=== PATIENT | male | born 1965 | race Caucasian/White ===

== ENCOUNTER 2020-03-01 23:47 | Emergency (ER) | payer OTHER, SELFPAY ==
[2020-03-01 23:48] VITALS: PULSE 84; RESP 18; TEMP 36.6; O2SAT 99; BMI 36.2
[2020-03-01 23:58] VITALS: BP 190/108
[2020-03-02 00:14] VITALS: BP 148/95
--- NOTE | 2020-03-02 00:41 | RAD_ITS ---
STUDY: X-RAY CHEST REASON FOR EXAM: Male, 54 years old. Pain between shoulder blades upon inspiration. TECHNIQUE: Single AP portable view of the chest. COMPARISON: None. FINDINGS: The lungs are clear and expanded. There is no demonstrated pleural abnormality. Normal size heart. Normal mediastinum and huseyin. Normal visualized pulmonary arteries. Normal visualized aortic arch and descending thoracic aorta. Normal visualized thoracic spine. Normal visualized ribs, clavicles, and shoulders. There is no demonstrated abnormality of the visualized soft tissue structures of the upper abdomen. RAD/Chest 1 View (Portable) IMPRESSION: Normal x-ray examination of the chest. Electronically Signed: Mele Souza, at 1:44 EST Tel , Service support ,
[2020-03-02] MEDS: Naproxen 250 MG Tablet 500 MG PO (00:51)
--- NOTE | 2020-03-02 02:05 | ED.DCSUM_ITS ---
- ER Visit Summary Date of Service: 03/02/20 Chief Complaint: Thoracic back pain History of Present Illness: The patient is a 54 M resents with thoracic back pain that began yesterday. Patient states the pain is over the right lower thoracic area under his right scapula. Patient states the pain waxes and wanes. Patient describes the pain is sharp and burning. Patient states it is worse with breathing. Patient states nothing seems to help with it. Patient states it is causing him to be somewhat short of breath. Patient denies any cough. Patient denies any fevers or chills. Patient denies any chest pain. Physical Examination: Vital signs are stable. Patient is afebrile. Patient is in no acute distress. Oral mucosa is pink and moist. Neck is supple. Trachea is midline. There is no JVD. Heart was regular rate and rhythm. Lungs are clear and equal bilateral. Abdomen is soft. Bowel sounds are normal. There is no tenderness. Musculoskeletal exam reveals minimal tenderness over the right lower thoracic paraspinal area. There is no bony crepitance or step-off. Cranial nerves II through XII are intact. Strength is 5/5 bilateral in the upper and lower extremities. There are no sensory deficits. Test Results: Portable chest x-ray is obtained. There is no acute cardiopulmonary process noted. This was interpreted by the radiologist and reviewed by myself. Emergency Department Course and Treatment: Patient was given a dose of Naprosyn here. Patient was given a prescription for Naprosyn. Patient was advised that this could be musculoskeletal or pleurisy. Patient was instructed to follow-up with his primary care physician in 5 to 7 days. Patient understood and was agreeable with the plan. All questions were answered. Disposition: Discharge home Impression: Thoracic back pain This note was generated with [employer] dictation software. It may contain incorrect words, spelling, and punctuation that were not noted in review of the chart prior to signing ED Disposition - Plan for ED Patient: Disposition: Home or Assisted Living Diagnosis: Acute thoracic back pain Instructions: ED Back Pain Acute or Chronic, ED Chest Pain Pleurisy Prescriptions: Naproxen [Naprosyn] 500 mg PO BID PRN #20 tab Prescription Printed Referrals: Eligio Lyman MD [Primary Care Provider] - 5-7 Days
[2020-03-02 02:18] VITALS: BP 140/78; PULSE 88; RESP 18; O2SAT 100
== END 2020-03-02 02:18 | disposition home or self-care (01) ==
PROVIDERS: Emergency Provider Emergency Medicine; PCP Family Medicine
DX: M54.6 Pain in thoracic spine (principal); I10 Essential (primary) hypertension; Z79.899 Other long term (current) drug therapy; Z72.0 Tobacco use
CPT/HCPCS: 71045; 99283

== ENCOUNTER 2020-08-07 19:59 | Emergency (ER) | payer OTHER, SELFPAY ==
[2020-08-07] VITALS (7 sets, daily range): BP systolic 130–176; BP diastolic 74–106; PULSE 78–89; RESP 13–19; TEMP 36.4–37.1; O2SAT 93–97; BMI 36.1
--- NOTE | 2020-08-07 20:15 | CT_ITS ---
STUDY: CT SOFT TISSUE NECK WITH CONTRAST REASON FOR EXAM: Male, 54 years old. Left neck fullness RADIATION DOSAGE (If Supplied By Facility): CTDIvol = ( 19.28 ) mGy, DLP = ( 626.15 ) mGycm TECHNIQUE: The patient was scanned in a multi-detector CT scanner. High resolution transaxial imaging was performed following intravenous administration of IV 75mL Isovue-370. Sagittal and coronal images were reconstructed. Individualized dose optimization techniques were used for this CT. COMPARISON: None. FINDINGS: Normal bilateral parotid glands. Normal bilateral inventory control/shipping receiving spaces. Normal bilateral parapharyngeal spaces. Normal bilateral carotid spaces. There is enlargement of the left submandibular gland with ill-defined fat planes. There is some heterogeneity extending into the left digastric and possible geniohyoid muscles requiring further evaluation. Normal visualized nasopharynx. Normal retropharyngeal space. Normal perivertebral space. Normal visualized bilateral faucial tonsils. The visualized tongue, tongue base and oropharynx are normal. Mild left submandibular adenopathy. There is no abnormal contrast enhancement. There is intraluminal thrombus and calcifications at the bilateral carotid bulbs with moderate luminal narrowing. Mild thickening is noted on the left side of the epiglottis. There is mild soft tissue fullness at the left side of the vallecula and the left piriform sinus. The pre-epiglottic and paraglottic adipose spaces are normal. Normal visualized aryepiglottic folds, vocal cords, and arytenoid-cricoid articulations. Normal subglottic trachea. Normal bilateral lobes of the thyroid gland. Normal visualized pulmonary apices. Normal visualized paranasal sinuses. Normal visualized cervical spine. CT/Soft Tissue Neck WITH Contrast IMPRESSION: Enlargement of the left submandibular gland with ill-defined fat planes. There is some heterogeneity extending into the left digastric and possible geniohyoid muscles requiring further evaluation. Mild left submandibular adenopathy. Mild thickening is noted on the left side of the epiglottis. There is mild soft tissue fullness at the left side of the vallecula and the left piriform sinus. Further correlation with MRI may be of value if clinically indicated. There is intraluminal thrombus and calcifications at the bilateral carotid bulbs with moderate luminal narrowing. Electronically Signed: August Quesada DO at 22:02 EDT Tel [phone], Service support ,
[2020-08-07] MEDS: Ondansetron 4 MG/2 ML Vial IV (20:35)
[2020-08-07] MEDS: morphine 8 MG/ML Syringe IV (20:35)
[2020-08-07] MEDS: 0.9% Normal Saline 1,000 ML 1000 ML IV (20:35)
--- NOTE | 2020-08-07 20:44 | RAD_ITS ---
STUDY: X-RAY CHEST REASON FOR EXAM: Male, 54 years old. Chest pain TECHNIQUE: Frontal view COMPARISON: 03/02/2020 FINDINGS: The lungs are clear and expanded. There is no demonstrated pleural abnormality. Normal size heart. Normal mediastinum and huseyin. Normal visualized pulmonary arteries. Normal visualized aortic arch and descending thoracic aorta. Normal visualized thoracic spine. Normal visualized ribs, clavicles, and shoulders. There is no demonstrated abnormality of the visualized soft tissue structures of the upper abdomen. RAD/Chest 1 View (Portable) IMPRESSION: Normal x-ray examination of the chest. Electronically Signed: August Quesada DO at 20:59 EDT Tel [phone], Service support ,
[2020-08-07 20:45] LABS: Absolute Lymphocyte Count 1.38 X10^3/uL (0.83-4.51); Basophil# 0.05 X10^3/uL; Basophil% 0.5 % (0-1); Eosinophil# 0.19 X10^3/uL; Hematocrit 48.9 % (40-54); Lymphocyte # 1.38 X10^3/ul (0.83-4.51); Lymphocyte % 14.7 % (19-41); Mean Corp Hgb Conc 32.7 g/dL (32-36); Mean Corpuscular Hgb 31.9 pg (27.0-32.0); Mean Corpuscular Volume 97.4 fL (80-94); Mean Platelet Vol. 9.3 fl (6.2-12.0); Monocyte# 0.74 X10^3/uL; Monocyte% 7.9 % (0-10); NRBC Flagged by Analyzer 0 % (0-5); Neutrophil # 6.96 X10^3/uL (2.7-7.7); Neutrophil % 74.3 % (47-70); Platelet Count 217 K/mm3 (150-450); RBC Distribution Width CV 12.9 % (11.6-14.6); RBC Distribution Width SD 46.5 fl (35.1-43.9); Red Blood Count 5.02 M/mm3 (4.6-6.2); White Blood Count 9.4 K/mm3 (4.4-11.0)
[2020-08-07 21:03] LABS: Anion Gap 4 (5-15); BUN 15 mg/dL (7-18); Calcium,Total 9.2 mg/dL (8.5-10.1); Chloride 102 mmol/L (98-107); EST Glomerular Filtration Rate 83 mL/min (>60); Est Glom Filt Rate - Afr Amer 101 mL/min (>60); Estimated Creatinine Clearance 93.77 ml/min; Glucose 125 mg/dL (74-106); Potassium 4.3 mmol/L (3.5-5.1); Sodium Level 133 mmol/L (136-145)
--- NOTE | 2020-08-07 21:13 | ED.DCSUM_ITS ---
History of Present Illness Chief Complaint: General Illness Informant: Patient Onset: Days Maximum Severity: Mild Narrative: Patient presents with swelling over the left lower mandible area for the last few days he was seen by urgent care the other day told to follow-up given Naprosyn for the pain the symptoms persist and he came in for evaluation, he has no dental pain he has no fever no cough he smokes but has no history of HEENT abnormalities, he is able to drink water solid foods make a little bit harder, he has no stridor or drooling no fever no cough no coronavirus exposures no other complaints or issues Past Medical History - Allergies and Home Meds Allergies/Adverse Reactions: Allergies tree nut Allergy (Verified 08/07/20 20:03) Anaphylaxis Primary Care Physician: Eligio Lyman MD [Primary Care Provider] - Past Medical History: None Smoking Status: Current every day smoker Review of Systems General: Denies: Chills, Fever, Sweats Eyes: Denies: Visual changes - bilaterally, Diplopia ENT: Reports: - - Swelling under the left mandible. Denies: Rhinorrhea, Sore throat Cardiovascular: Denies: Chest pain, Palpitations Respiratory: Denies: Dyspnea, Cough, Dyspnea on exertion Gastrointestinal: Denies: Abdominal pain, Nausea, Vomiting, Diarrhea, Melena, Hematochezia Genitourinary: Denies: Dysuria, Hematuria, Frequency Musculoskeletal: Denies: Back pain, Extremity Pain Skin: Denies: Rash, Wounds Neurological: Denies: Headache, Weakness, Numbness Physical Exam Vital Signs/Narrative: Vital Signs Temp Pulse Resp BP Pulse Ox 08/07/20 20:25 97.8 F 84 19 H 176/106 H 95 08/07/20 20:14 95 08/07/20 20:00 97.5 F L 89 18 167/105 H 95 General: Well nourished, Well developed, No Acute Distress Head: Normocephalic, Atraumatic Eyes: Perrl, EOMI ENT: Moist mucous membranes, No rhinorrhea, - - He has a fullness under his left mandible the oral cavity is unremarkable his teeth do not show any obvious signs of infection there is no stridor or drooling his phonation is normal Neck: Supple, Nontender Cardiovascular: Regular rate, Regular rhythm, No murmurs Respiratory: No distress, CTA bilaterally, Chest nontender Abdomen: Soft, Nontender, Nondistended, Normal bowel sounds Back: Nontender, Normal Inspection Extremities: Nontender, No edema Skin: Normal color, No rash Neurological: Alert, Oriented x3, Cranial nerves II-XII grossly intact, Normal Strength, Normal Sensation Psychological: Normal affect, Normal Mood Diagnostic/Tx/Re-eval - Medical Decision Making Fullness under his left mandible and all the above the differential screening labs CT soft tissue neck ED evaluation His EKG shows a sinus rhythm rate 75 no acute injury 1 view chest x-ray to my review shows nothing acute radiology concurs with the report, CT of the neck shows an abnormality involving the left submandibular gland there is a fullness here there is some edema the airway is generally intact, there is also findings of thombus and plaques involving the bilateral c arotid bulbs, recommend MRI for further delineation of the abnormalities patient's ED screening labs are generally unremarkable she was reports, Woke with the patient at length about admission for further management of the above he does not wish to be admitted we discussed all of the findings including the concept of airway compromise sudden stroke from the thrombus in the carotids infection possible carcinoma in the broad differential of all the above, he voiced understanding but did not wish to be admitted, I then spoke with his outpatient providers made them aware of the above they would see him in the office MY[facility] to further evaluate him ENT MRI consultation he will return for change in symptoms he will be started on Augmentin he has Naprosyn he will be given [address] 4 tablets as a rescue medicine he will follow-up and return return for change in symptoms he is clearly awake and alert has capacity to make this decision and understands all the risks including the risk of airway compromise and Home stable declined admission Impression final left submandibular mass, 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 ED Disposition - Plan for ED Patient: Diagnosis: Submandibular gland mass Instructions: ED ADENITIS Cervical Abx Tx, ED PAROTID GLAND SWELLING Unk Cause Prescriptions: Amox/Clavulanate Tablet [Augmentin Tablet] 875 mg PO Q12H #20 tab Prescription Printed Hydrocodone Bitart/Apap 5-325 [[address] 5MG-325MG] 1 tablet PO Q6H PRN PRN 7 Days #7 tab PRN Reason: Pain Prescription Printed Referrals: Eligio Lyman MD [Primary Care Provider] - Additional Instructions: You have swelling of the left submandibular gland the cause of this is unclear you have thrombus in your carotid arteries you must see your outpatient providers tomorrow return for change in symptoms
[2020-08-07] MEDS: 0.9% Normal Saline 1,000 ML 999 ML IV (21:47)
[2020-08-07] MEDS: Amox/Clavulanate 875 MG Tablet PO ×2 (22:59)
--- NOTE | 2020-08-07 23:40 | EKG12_ITS ---
Test Reason : JAW PAIN Blood Pressure : / mmHG Vent. Rate : 075 BPM Atrial Rate : 075 BPM P-R Int : 164 ms QRS Dur : 086 ms QT Int : 408 ms P-R-T Axes : 065 016 047 degrees QTc Int : 455 ms Normal sinus rhythm Poor R wave progression Confirmed by STEPHANIE CLARKE, KAVIN ([id number]), newspaper editor managing HAMZAH JEFF ([id number]) on 08/09/2020 11:34:28 AM Referred By: [id number] Confirmed By:KAVIN BROWN MD
== END 2020-08-07 22:58 | disposition home or self-care (01) ==
LOC: ED 20:44
PROVIDERS: Emergency Provider Emergency Medicine; PCP Family Medicine
DX: K11.8 Other diseases of salivary glands (principal); I65.23 Occlusion and stenosis of bilateral carotid arteries; F17.200 Nicotine dependence, unspecified, uncomplicated
CPT/HCPCS: 70491; 71045; 80048; 84484; 85025; 93005; 96361; 96374; 96375; 99285; J7030; J2405

== ENCOUNTER 2021-12-14 09:16 | Emergency (ER) | payer OTHER, SELFPAY ==
--- NOTE | 2021-12-14 | SPU_PTH ---
PATIENT: CECI RAMIRES Jr. LOC: ED U#:[id number] AGE/SX: 56/M ROOM: RE12/14/[address]: Dr. Victor Hugo Lee DO : 1965 BED: DIS: 12/14/2021 SPEC #: [id number] RECD: 12/15/21 12:25 STATUS: RADHA TAZ #: [id number] CELIA: 12/14/21 00:[address]: Victor Hugo Lee DEPT: CYTOLOGY RECD BY: Ross Ortega ENTERED: 12/15/21 12:25 SP TYPE: Sputum Cy OT DR: Dr. Eligio Lyman MD Tissues: Sputum Procedures: Pap Stain (control) Special Stain Group II Special Stain Group I AFB Stain (control) Cytospin Fluid HEADER OPERATION: Not noted PRE-OP DIAGNOSIS: Coughing up blood TISSUE SUBMITTED: Sputum for cytology DIAGNOSIS CYTOLOGY Sputum for cytology (smears and cytospin): Negative for malignant cells. Negative for acid fast bacilli. See comment. AM:aura 12/15/2021 COMMENT AFB stain with matched control was used in the evaluation of this case. Clinical correlation is suggested. CYTOLOGY STUDY Slides are reviewed. The specimen contains benign squamous cells, polymorphous lymphocytes and bacterial colonies. CYTOLOGY GROSS Received is 1 ml of thick brown sputum labeled with the patient's name and and designated per the requisition as sputum. Submitted for cytology preparation. / aura 12/15/2021 TC:5 CPT: 83733, 64175
[2021-12-14 09:17] VITALS: BP 132/80; PULSE 89; RESP 20; TEMP 36.4; O2SAT 97; BMI 33.7
[2021-12-14 09:22] VITALS: BP 132/80; PULSE 89; RESP 20; TEMP 36.4; O2SAT 97
--- NOTE | 2021-12-14 09:43 | EX.ED.DYSGE1 ---
HPI History of Present Illness Chief Complaint: Cough Informant: patient Onset/Context/Timing Onset: Yesterday Context: Gradual Onset Timing: Continuous Quality: Red blood Location: Sputum Worsened by: Laying down Relieved by: Nothing Narrative Narrative: Patient presents with some hemoptysis that began last night. Patient states he has had a cough for the past 4 days but last night started coughing up some blood. Patient states it is worse whenever he lays down. Patient states it may be just a teaspoon of blood in his sputum. Patient states it has been constant since last night. Patient states he has been unable to sleep due to the cough. Patient admits to some pain over his right scapular area. Patient denies any fevers or chills. Patient denies any chest pain or shortness of breath. [facility] Medical History (Updated 12/14/21 @ 13:[address] Victor Hugo Lee DO) Hypertension Non-insulin dependent diabetes mellitus Home Medications atenolol 50 mg tablet 50 mg PO DAILY 03/01/20 [History Last Taken Unknown] lisinopril 20 mg tablet 40 mg PO DAILY 03/01/20 [History Last Taken Unknown] paroxetine HCl 20 mg tablet 20 mg PO DAILY 03/01/20 [History Last Taken Unknown] naproxen 500 mg tablet 500 mg PO BID PRN ##20 03/02/20 [Rx Last Taken Unknown] aspirin 81 mg chewable tablet 1 tablet PO DAILY 08/07/20 [History Last Taken Unknown] lovastatin 10 mg tablet 10 mg PO DAILY 08/07/20 [History Last Taken Unknown] levofloxacin 500 mg tablet 500 mg PO DAILY #7 tabs 12/14/21 [Rx Last Taken Unknown] tadalafil 20 mg tablet 20 mg PO PRN PRN Erectile Dysfunction 12/14/21 [History Last Taken Unknown] Allergy/AdvReac Type Severity Reaction Status Date / Time tree nut Allergy Anaphylaxis Verified 12/14/21 09:17 Surgical History (Updated 12/14/21 @ 09:[address] Victor Hugo Lee DO) Hx of cholecystectomy Social History Smoking Status: Current every day smoker tobacco type: cigarettes ROS ROS ED Constitutional Constitutional ED: Denies chills or fever(s) Eyes Eyes: Denies blurry vision or change in vision ENT ENT ED: Denies rhinorrhea or sore throat Cardiovascular Cardiovascular: Denies chest pain or palpitations Respiratory/Chest Respiratory/Chest: Reports cough; Denies dyspnea Gastrointestinal Gastrointestinal: Denies nausea or vomiting Genitourinary Genitourinary ED: Denies dysuria or hematuria Musculoskeletal Musculoskeletal: Reports back pain; Denies neck pain Integumentary Denies abscess or rash Neurologic Neurologic: Reports headache(s); Denies weakness Allergic/Immunologic Allergic/Immunologic ED: Denies mouth swelling or urticaria EXAM Physical Exam Const Vital Signs: 12/14/21 09:17 12/14/21 10:08 12/14/21 10:11 Temperature 97.5 F L Temperature Source Temporal Pulse Rate 89 89 Respiratory Rate 20 H 16 Respiratory Effort Normal Non-Labored Respiratory Depth Normal Respiratory Pattern Normal Blood Pressure 132/80 H Blood Pressure Mean 97 Pulse Ox 97 Oxygen Delivery Method Room Air Room Air 12/14/21 10:11 12/14/21 09:22 12/14/21 10:22 Temperature 97.5 F L 97.8 F Temperature Source Temporal Temporal Pulse Rate 89 88 Respiratory Rate 20 H 14 Respiratory Effort Respiratory Depth Respiratory Pattern Blood Pressure 132/80 H 129/77 H Blood Pressure Mean 97 94 Pulse Ox 94 97 92 Oxygen Delivery Method Room Air Room Air Room Air 12/14/21 11:00 Temperature 97.4 F L Temperature Source Temporal Pulse Rate 89 Respiratory Rate 20 H Respiratory Effort Respiratory Depth Respiratory Pattern Blood Pressure 129/77 H Blood Pressure Mean 94 Pulse Ox 98 Oxygen Delivery Method Room Air Positive well nourished, well developed and obese General Appearance ED: well developed and NAD Nutritional Appearance: obese HEENT Reports moist mucous membranes Neck supple and no JVD Resp normal respiratory effort Auscultation: wheezes lower bilaterally Cardio regular rate, regular rhythm and no murmurs GI normal to inspection, nondistended, normoactive bowel sounds and non-tender Palpation: soft Extremity normal to inspection General Extremety ED: Negative for edema or tenderness General Extremity: Negative for edema Neuro oriented x3, CN's II-XII intact bilaterally and no sensory deficits noted Sensorium / Orientation: alert Motor Exam: strength 5/5 throughout Psych mental status grossly normal Skin no rashes or lesions noted MDM MDM MDM Narrative Medical decision making narrative: EKG was obtained. On my interpretation, it showed a normal sinus rhythm with a rate of 86. DC interval, QRS interval, and QTc intervals were all normal. [place] was normal. There are no acute ST or T wave changes. CBC shows a mild leukocytosis of 14.7. Comprehensive metabolic profile shows a mild hyponatremia of 129. PT was INR and PTT were normal. High-sensitivity troponin was less than 3. CTA of the chest was obtained. There is no pulmonary embolism. There is a 6.5 cm thick-walled cavitary mass in the right upper lobe with an air-fluid level. This is concerning for pulmonary abscess or bronchogenic carcinoma. Because of this, case was discussed with Dr. Martin from pulmonology. He recommended obtaining sputum for AFB as well as a culture. We will cover the patient with antibiotics for community-acquired pneumonia. He will follow-up with the patient as an outpatient. Patient was given his information. Patient was instructed to call tomorrow and schedule an appointment in 5 to 7 days. Patient understood and was agreeable with the plan. All questions were answered. Lab Data Attestation: I reviewed the patient's lab results. Labs: Laboratory Results - last 24 hr 12/14/21 12/14/21 12/14/21 10:03 10:03 10:03 WBC 14.7 H RBC 4.34 L Hgb 14.1 Hct 41.4 MCV 95.4 H MCH 32.5 H MCHC 34.1 RDW Std Deviation 45.3 H RDW Coeff of [place] 12.7 Plt Count 304 MPV 9.1 Immature Gran % (Auto) 2.100 H Neut % (Auto) 77.0 H Lymph % (Auto) 9.7 L [place] % (Auto) 10.3 H Eos % (Auto) 0.4 Baso % (Auto) 0.5 Absolute Neuts (auto) 11.3 H Absolute Lymphs (auto) 1.42 Nucleated RBC % 0 Diff Path Review May foll Platelet Estimate ADEQUATE RBC Morphology NORM C+C PT 14.5 INR 1.2 APTT 30.0 Sodium 129 L Potassium 4.5 Chloride 97 L Carbon Dioxide 26.0 Anion Gap 6 BUN 12 Creatinine 0.90 Estim Creat Clear Calc 101.79 Est GFR (MDRD) Af Amer 112 Est GFR (MDRD) Non-Af 93 BUN/Creatinine Ratio 13.3 Glucose 161 H Calcium 9.4 Total Bilirubin 0.80 AST 12 L ALT 21 Alkaline Phosphatase 81 Troponin I High Sens < 3 L Total Protein 8.4 H Albumin 2.6 L Globulin 5.8 H Albumin/Globulin Ratio 0.4 L Radiography Diagnostic Testing: Clinical Impression(s) from Imaging Studies Chest CTA 12/14/21 09:48 IMPRESSION: 1. No CT evidence of pulmonary embolism. 2. 6.5 cm thick-walled cavitary mass with an air-fluid level in the right upper lobe the lungs worrisome for pulmonary abscess or bronchogenic carcinoma. Clinical correlation and PET CT scan would be useful. Electronically Signed: Sy Lerma MD at 11:59 EDT , EKG Initial EKG: Attestation: I personally reviewed and interpreted this EKG as follows: Interpretation: Sinus Rhythm (86) and No Acute Injury Pattern Prior EKG tracings: available for review Prior: Unchanged (08/07/2020) Discharge Plan Triage Chief Complaint: Cough ED Provider: Victor Hugo Lee Dx/Rx/DC Orders Clinical Impression: Pneumonia, Lung abscess Instructions: ED Pneumonia (Adult) Prescriptions: New levofloxacin [levofloxacin] 500 mg tablet 500 mg PO DAILY Qty: 7 0RF No Action lisinopril 20 MG tablet 40 mg PO DAILY paroxetine HCl 20 MG tablet 20 mg PO DAILY atenolol 50 MG tablet 50 mg PO DAILY naproxen 500 MG tablet 500 mg PO BID PRN Qty: 20 0RF lovastatin 10 MG tablet 10 mg PO DAILY aspirin 81 MG tablet,chewable 1 tablet PO DAILY tadalafil 20 mg tablet 20 mg PO PRN PRN (Reason: Erectile Dysfunction) Label Comments: TAKE 1 TABLET BY MOUTH DAILY or DIRECTED Primary Care Provider: Eligio Lyman Referrals: Brady Martin MD [Med Staff - Active Staff] - 5-7 Days Eligio Lyman MD [Primary Care Provider] - 5-7 Days Disposition Disposition: Home, Self Care
--- NOTE | 2021-12-14 09:47 | EKG12_ITS ---
Test Reason : COUGH Blood Pressure : / mmHG Vent. Rate : 086 BPM Atrial Rate : 086 BPM P-R Int : 162 ms QRS Dur : 084 ms QT Int : 356 ms P-R-T Axes : 070 026 053 degrees QTc Int : 426 ms Normal sinus rhythm Normal ECG Confirmed by STEPHANIE CLARKE, KAVNI ([id number]), commercial production editor HAMZAH JEFF ([id number]) on 12/17/2021 8:52:06 AM Referred By: Confirmed By:KAVIN BROWN MD
--- NOTE | 2021-12-14 09:48 | CT_ITS ---
STUDY: CTA CHEST REASON FOR EXAM: Male, 56 years old. Hemoptysis RADIATION DOSAGE (If Supplied By Facility): CTDIvol = ( 12.41 ) mGy, DLP = ( 560.89 ) mGycm TECHNIQUE: The examination was performed with the intravenous administration of IV 100mL Isovue-370. Post-processing of the angiographic images was performed, with multiplanar reformation and 3D reconstruction. Individualized dose optimization techniques were used for this CT. COMPARISON: None. FINDINGS: Normal enhancement of the main pulmonary artery and right and left pulmonary arteries. Normal enhancement of the bilateral peripheral pulmonary arteries. There is no demonstrated pulmonary embolism. Normal thoracic aorta and visualized great vessels. There is no demonstrated aortic dissection. Normal heart and pericardium. Normal mediastinum. Normal hilar regions. Normal visualized trachea and bronchi. The lungs are well expanded. 6.5 cm thick-walled cavitary mass with an air-fluid level in the right upper lobe the lungs on image 209 worrisome for pulmonary abscess or necrotic bronchogenic carcinoma. Clinical correlation and PET CT scan may be useful. Normal pleura. Normal chest wall structures. Normal osseous structures. Normal visualized upper abdomen. CT/CTA Chest W/WO Contrast IMPRESSION: 1. No CT evidence of pulmonary embolism. 2. 6.5 cm thick-walled cavitary mass with an air-fluid level in the right upper lobe the lungs worrisome for pulmonary abscess or bronchogenic carcinoma. Clinical correlation and PET CT scan would be useful. Electronically Signed: Sy Lerma MD at 11:59 EDT ,
[2021-12-14 10:09] LABS: Absolute Lymphocyte Count 1.42 X10^3/uL (0.83-4.51); Absolute Neutrophil Count 11.3 X10^3/uL (2.0-7.7); Basophil# 0.07 X10^3/uL; Basophil% 0.5 % (0-1); Eosinophil# 0.06 X10^3/uL; Eosinophils% 0.4 % (0-5); Hematocrit 41.4 % (40-54); Hemoglobin 14.1 g/dL (13.0-16.5); Lymphocyte # 1.42 X10^3/ul (0.83-4.51); Lymphocyte % 9.7 % (19-41); Mean Corp Hgb Conc 34.1 g/dL (32-36); Mean Corpuscular Hgb 32.5 pg (27.0-32.0); Mean Corpuscular Volume 95.4 fL (80-94); Mean Platelet Vol. 9.1 fl (6.2-12.0); Monocyte# 1.52 X10^3/uL; Monocyte% 10.3 % (0-10); NRBC Flagged by Analyzer 0 % (0-5); Neutrophil # 11.32 X10^3/uL (2.7-7.7); POSITIVE DIFFERENTIAL YES; Platelet Count 304 K/mm3 (150-450); RBC Distribution Width CV 12.7 % (11.6-14.6); RBC Distribution Width SD 45.3 fl (35.1-43.9); Red Blood Count 4.34 M/mm3 (4.6-6.2); White Blood Count 14.7 K/mm3 (4.4-11.0)
[2021-12-14] MEDS: Ipratropium/Albuterol Sulfate 3 ML AMPUL.NEB INHALATION (10:09)
[2021-12-14 10:11] VITALS: PULSE 89; RESP 16; O2SAT 94
[2021-12-14 10:11] LABS: Differential Indicated SCAN CRITERIA MET
[2021-12-14 10:22] VITALS: BP 129/77; PULSE 88; RESP 14; TEMP 36.6; O2SAT 92
[2021-12-14 10:25] LABS: International Normalized Ratio 1.2; Prothrombin Time (Protime)PT. 14.5 SECONDS (11.7-14.9)
[2021-12-14 10:27] LABS: ALB/GLOB Ratio 0.4 RATIO (0.9-2.4); AST(SGOT) 12 U/L (15-37); Alanine Aminotransfer ALT/SGPT 21 U/L (16-61); Albumin, Serum 2.6 g/dL (3.2-5.0); Alkaline Phosphatase 81 U/L (45-117); Anion Gap 6 (5-15); BUN 12 mg/dL (7-18); BUN/Creat Ratio 13.3 RATIO (10-20); Calcium,Total 9.4 mg/dL (8.5-10.1); Chloride 97 mmol/L (98-107); EST Glomerular Filtration Rate 93 mL/min (>60); Est Glom Filt Rate - Afr Amer 112 mL/min (>60); Estimated Creatinine Clearance 101.79 ml/min; Globulin 5.8 g/dL (2.2-4.2); Glucose 161 mg/dL (74-106); Potassium 4.5 mmol/L (3.5-5.1); Protein, Total 8.4 g/dL (6.4-8.2); Sodium Level 129 mmol/L (136-145); Troponin-I HS < 3 pg/mL (3.0-78.0)
[2021-12-14 10:41] LABS: Platelet Estimate ADEQUATE (ADEQ); Red Cell Morphology NORM C+C NORMAL (NORM C&C)
[2021-12-14 11:00] VITALS: BP 129/77; PULSE 89; RESP 20; TEMP 36.3; O2SAT 98
[2021-12-14 13:24] VITALS: RESP 16
[2021-12-14] MEDS: levoFLOXacin 750 MG Tablet PO (13:36)
[2021-12-15 07:16] LABS: Acid Fast Stain SEE PATHOLOGY REPORT; Cytology, Body Fluid / CSF SEE PATHOLOGY REPORT
[2021-12-16 09:08] LABS: Pathologist Review Reviewed
== END 2021-12-14 13:38 | disposition home or self-care (01) ==
PROVIDERS: Emergency Provider Emergency Medicine; PCP Family Medicine; Visit Provider Emergency Medicine
DX: J85.1 Abscess of lung with pneumonia (principal); R04.2 Hemoptysis; I10 Essential (primary) hypertension; F17.210 Nicotine dependence, cigarettes, uncomplicated; Z79.82 Long term (current) use of aspirin; Z79.899 Other long term (current) drug therapy
CPT/HCPCS: 71275; 80053; 84484; 85025; 85610; 85730; 87070; 87205; 87428; 88108; 88312; 88313; 93005; 94640; 99285; Q9967; A4216

== ENCOUNTER → 2022-01-19 | Outpatient (CLI) | payer OTHER, SELFPAY ==
--- NOTE | 2022-01-20 05:21 | PFTCOMP_ITS ---
COMPLETE PULMONARY FUNCTION TEST INTERPRETATION Brief HPI: Patient is a 56-year-old male, currently under the care of myself, who presents to [facility] for complete pulmonary function tests secondary to diagnosis of lung abscess. Respiratory therapist reports good effort and reproducible results. Interpretation: Forced expiration spirometry shows a moderate large airways obstructive ventilatory defect with an FEV1 of 64% predicted. There is no significant bronchodilator response by strict ATS criteria. Spirograms are of good quality and plateau slowly, indicating slowly emptying areas of the lungs. The respiratory flow volume loop shows decreased expiratory flow rates at all lung volumes consistent with airway obstruction. Lung volumes by body plethysmography show a normal total lung capacity at 6.72 L, 93% predicted. All other lung volumes are within normal limits. Diffusion capacity by carbon monoxide is normal at 100% predicted. The airway resistance is normal. No previous pulmonary function tests were available for review. Impression: Irreversible moderate large airways obstructive ventilatory defect with preserved lung volumes and diffusing capacity
== END | disposition home or self-care (01) ==
LOC: PSN 13:11
PROVIDERS: PCP Family Medicine; Referring Provider Internal Medicine Critical Care Medicine; Visit Provider Internal Medicine Critical Care Medicine
DX: J85.1 Abscess of lung with pneumonia (principal)
CPT/HCPCS: 94060; 94726; 94729

== ENCOUNTER 2022-12-03 12:09 | Emergency (ER) | payer OTHER, SELFPAY ==
[2022-12-03 12:10] VITALS: BP 152/92; PULSE 81; RESP 14; TEMP 36.6; O2SAT 94; BMI 37.8
[2022-12-03 12:20] VITALS: BP 176/101; PULSE 85; RESP 21; O2SAT 94
--- NOTE | 2022-12-03 12:32 | EKG12_ITS ---
Test Reason : SOB Blood Pressure : / mmHG Vent. Rate : 085 BPM Atrial Rate : 085 BPM P-R Int : 166 ms QRS Dur : 084 ms QT Int : 372 ms P-R-T Axes : 069 024 058 degrees QTc Int : 442 ms Normal sinus rhythm Normal ECG Confirmed by SUNNY CLARKE, HARRY ([id number]), deputy editor in chief COLIN COWART ([id number]) on 12/07/2022 8:21:03 AM Referred By: DAINA/DARRELL Confirmed By:MJ CORREA MD
[2022-12-03] MEDS: Ipratropium/Albuterol Sulfate 3 ML AMPUL.NEB INHALATION (12:40)
[2022-12-03] MEDS: Albuterol 2.5 MG/3 ML VIAL.NEB. INHALATION (12:40)
[2022-12-03 12:42] VITALS: PULSE 83; RESP 16
[2022-12-03] MEDS: MethylPREDNISolone 125 MG/2 ML Vial IV (12:45)
--- NOTE | 2022-12-03 12:50 | RAD_ITS ---
STUDY: X-RAY CHEST REASON FOR EXAM: Male, 57 years old. Shortness of breath TECHNIQUE: Single AP portable view of the chest. COMPARISON: Comparison is made with prior study dated August 07, 2020. FINDINGS: EKG electrodes are seen. The lungs are clear and expanded. There is no demonstrated pleural abnormality. Normal size heart. Normal mediastinum and huseyin. Normal visualized pulmonary arteries. Normal visualized aortic arch and descending thoracic aorta. Normal visualized thoracic spine. Normal visualized ribs, clavicles, and shoulders. There is no demonstrated abnormality of the visualized soft tissue structures of the upper abdomen. RAD/Chest 1 View (Portable) IMPRESSION: Normal x-ray examination of the chest. Electronically Signed: Iban Crespo MD at 13:13 EDT ,
[2022-12-03 12:56] LABS: Absolute Lymphocyte Count 1.25 X10^3/uL (0.83-4.51); Absolute Neutrophil Count 4.6 X10^3/uL (2.0-7.7); Basophil# 0.07 X10^3/uL; Eosinophil# 0.18 X10^3/uL; Eosinophils% 2.6 % (0-5); Hematocrit 43.4 % (40-54); Hemoglobin 14.3 g/dL (13.0-16.5); Lymphocyte # 1.25 X10^3/ul (0.83-4.51); Lymphocyte % 18.2 % (19-41); Mean Corp Hgb Conc 32.9 g/dL (32-36); Mean Corpuscular Volume 97.1 fL (80-94); Mean Platelet Vol. 9.6 fl (6.2-12.0); Monocyte# 0.68 X10^3/uL; Monocyte% 9.9 % (0-10); NRBC Flagged by Analyzer 0 % (0-5); Neutrophil # 4.59 X10^3/uL (2.7-7.7); Neutrophil % 66.8 % (47-70); Platelet Count 205 K/mm3 (150-450); RBC Distribution Width CV 13.2 % (11.6-14.6); RBC Distribution Width SD 47.4 fl (35.1-43.9); Red Blood Count 4.47 M/mm3 (4.6-6.2); White Blood Count 6.9 K/mm3 (4.4-11.0)
--- NOTE | 2022-12-03 13:03 | ED.VIS.DYS ---
HPI <JANNETH Grove - Last Filed: 12/03/22 16:53> History of Present Illness Chief Complaint: Shortness of Breath Narrative Narrative: Patient presenting today due to shortness of breath on exertion that he has had since Wednesday. He reports that he was kneeling and twisting while at work and was in a strange position and felt a strange burning sensation in his right rib cage. Now, whenever he takes a deep breath or moves in a certain way he has pain and spasms to his right rib cage. Patient is an every day smoker and was told when he did a spirometry test a year ago that he was on the border of having COPD. He also reports a history of hypertension and diabetes mellitus. He denies any history of blood clots, recent surgeries or procedures, recent immobilization, and recent travel. Patient denies any fever, chills, chest pain, abdominal pain, nausea, and vomiting. PFS <JANNETH Grove - Last Filed: 12/03/22 16:53> [facility] Medical History Hypertension Non-insulin dependent diabetes mellitus Home Medications atenolol 50 mg tablet 50 mg PO DAILY 03/01/20 [History Last Taken Unknown] lisinopril 20 mg tablet 40 mg PO DAILY 03/01/20 [History Last Taken Unknown] paroxetine HCl 20 mg tablet 20 mg PO DAILY 03/01/20 [History Last Taken Unknown] naproxen 500 mg tablet 500 mg PO BID PRN #20 tabs 03/02/20 [Rx Last Taken Unknown] aspirin 81 mg chewable tablet 1 tablet PO DAILY 08/07/20 [History Last Taken Unknown] lovastatin 10 mg tablet 10 mg PO DAILY 08/07/20 [History Last Taken Unknown] albuterol sulfate 90 mcg/actuation aerosol inhaler (Ventolin HFA) 1 - 2 puff inhalation Q4H PRN PRN Wheezing #1 inh 12/03/22 [Rx Last Taken Unknown] levofloxacin 750 mg tablet 750 mg PO DAILY 4 days #4 tabs 12/03/22 [Rx Last Taken Unknown] metformin 500 mg tablet,extended release 24 hr 500 mg PO BID 12/03/22 [History Last Taken Unknown] prednisone 20 mg tablet 40 mg (2 x 20 mg) PO DAILY 4 days #8 tabs 12/03/22 [Rx Last Taken Unknown] tadalafil 20 mg tablet 20 mg PO DAILY 12/03/22 [History Last Taken Unknown] Allergy/AdvReac Type Severity Reaction Status Date / Time tree nut Allergy Anaphylaxis Verified 12/03/22 12:10 Surgical History Hx of cholecystectomy Social History Smoking Status: Current every day smoker tobacco type: cigarettes ROS <JANNETH Grove - Last Filed: 12/03/22 16:53> ROS ED Constitutional Constitutional ED: Denies chills or fever(s) Cardiovascular Cardiovascular: Denies chest pain or palpitations Respiratory/Chest Respiratory/Chest: Reports dyspnea on exertion; Denies cough, tachypnea or wheezing Gastrointestinal Gastrointestinal: Denies abdominal pain, nausea or vomiting Genitourinary Genitourinary ED: Denies dysuria, hematuria or urinary urgency Musculoskeletal Musculoskeletal: Reports back pain; Denies arthralgias or myalgias Integumentary Denies abscess, Abrasions or rash Neurologic Neurologic: Denies paresthesias or weakness EXAM <JANNETH Grove - Last Filed: 12/03/22 16:53> Physical Exam Const Vital Signs: 12/03/22 12:10 12/03/22 12:20 12/03/22 12:20 Temperature 98 F Temperature Source Temporal Pulse Rate 81 85 Respiratory Rate 14 21 H Respiratory Effort Short of Breath Labored Respiratory Depth Normal Respiratory Pattern Tachypnea Blood Pressure 152/92 H 176/101 H Blood Pressure Mean 112 126 Pulse Ox 94 94 Oxygen Delivery Method Room Air Room Air Room Air Oxygen Flow Rate (L/min) 12/03/22 12:42 12/03/22 13:39 12/03/22 13:39 Temperature Temperature Source Pulse Rate 83 86 Respiratory Rate 16 16 Respiratory Effort Respiratory Depth Respiratory Pattern Blood Pressure 144/86 H Blood Pressure Mean 105 Pulse Ox 88 92 Oxygen Delivery Method Room Air Nasal Cannula Oxygen Flow Rate (L/min) 2 12/03/22 15:17 Temperature Temperature Source Pulse Rate 86 Respiratory Rate 20 H Respiratory Effort Respiratory Depth Respiratory Pattern Blood Pressure 172/97 H Blood Pressure Mean 122 Pulse Ox 94 Oxygen Delivery Method Room Air Oxygen Flow Rate (L/min) Positive well nourished, well developed and no apparent distress General Appearance ED: well developed HEENT Reports normocephalic and head/scalp atraumatic Mouth ED: Yes moist mucous membranes normal Eyes PERRL and EOMs intact bilaterally Neck full ROM and supple Chest Wall inspection of chest normal Chest Narrative: Pain to palpation to the right lateral rib cage. Resp normal respiratory effort Resp Narrative: Inspiratory and expiratory wheezes in all lung pedraza bilaterally. Cardio regular rate and regular rhythm GI soft to palpation, non-tender, non-distended and no masses Back/Spine normal ROM and normal to inspection Extremity normal to inspection and full ROM Neuro oriented x3, CN's II-XII intact bilaterally, moves all extremities, no focal motor deficits and no sensory deficits noted Sensorium / Orientation: awake and alert Psych mental status grossly normal and thought process normal Skin no rashes or lesions noted and no wounds <Dr. Taurus Kim DO - Last Filed: 12/03/22 19:25> Physical Exam Const Vital Signs: 12/03/22 12:10 12/03/22 12:20 12/03/22 12:20 Temperature 98 F Temperature Source Temporal Pulse Rate 81 85 Respiratory Rate 14 21 H Respiratory Effort Short of Breath Labored Respiratory Depth Normal Respiratory Pattern Tachypnea Blood Pressure 152/92 H 176/101 H Blood Pressure Mean 112 126 Pulse Ox 94 94 Oxygen Delivery Method Room Air Room Air Room Air Oxygen Flow Rate (L/min) 12/03/22 12:42 12/03/22 13:39 12/03/22 13:39 Temperature Temperature Source Pulse Rate 83 86 Respiratory Rate 16 16 Respiratory Effort Respiratory Depth Respiratory Pattern Blood Pressure 144/86 H Blood Pressure Mean 105 Pulse Ox 88 92 Oxygen Delivery Method Room Air Nasal Cannula Oxygen Flow Rate (L/min) 2 12/03/22 15:17 Temperature Temperature Source Pulse Rate 86 Respiratory Rate 20 H Respiratory Effort Respiratory Depth Respiratory Pattern Blood Pressure 172/97 H Blood Pressure Mean 122 Pulse Ox 94 Oxygen Delivery Method Room Air Oxygen Flow Rate (L/min) MDM <JANNETH Grove - Last Filed: 12/03/22 16:53> [facility] Narrative Medical decision making narrative: Patient presenting today due to shortness of breath on exertion that he has had over the past few days as well as a pain to his right lateral rib cage. He was at work on his hands and knees in a strange position and was twisting and felt a burning sensation in his right lateral rib cage and since then he has felt short of breath on exertion. He reports that every time he takes a deep breath he has a pain in that area. He went to urgent care this morning and they sent him here due to concerns for PE. However, patient has a Wells score of 0. I am able to reproduce the rib pain with palpation. Patient also was told he is on the border of having COPD when he did a spirometry test 1 year ago, he has continued to smoke and I do suspect that patient does have COPD. He does have both inspiratory and expiratory wheezes in all lung pedraza bilaterally to auscultation. Patient will be given Solu-Medrol, breathing treatments. Labs will be obtained to rule out leukocytosis, anemia, electrolyte abnormality, and ACS. On reexamination after the breathing treatments and Solu-Medrol patient reports that he feels much better and his lungs do sound improved. However, patient's O2 saturation has dropped to 88% on room air and he is now 92% on 2 L O2. Given this, D-dimer will be obtained to rule out PE. Patient has an elevated D-dimer, CTA of the chest to be obtained to rule out PE and shows a right lower lobe infiltrate. Patient was ambulated and remained above 95% on room air. He will be started on Levaquin with first dose here and will be given a prescription for prednisone and an albuterol inhaler. He has been given strict return instructions and is to follow-up with his PCP. He will be discharged home in stable condition and is comfortable with plan. Lab Data Attestation: I reviewed the patient's lab results. Labs: Laboratory Results - last 24 hr 12/03/22 12:48 WBC 6.9 RBC 4.47 L Hgb 14.3 Hct 43.4 MCV 97.1 H MCH 32.0 MCHC 32.9 RDW Std Deviation 47.4 H RDW Coeff of [place] 13.2 Plt Count 205 MPV 9.6 Immature Gran % (Auto) 1.500 H Neut % (Auto) 66.8 Lymph % (Auto) 18.2 L Ferry % (Auto) 9.9 Eos % (Auto) 2.6 Baso % (Auto) 1.0 Absolute Neuts (auto) 4.6 Absolute Lymphs (auto) 1.25 Nucleated RBC % 0 D-Dimer Quant (PE/DVT) 2.05 H* Sodium 131 L Potassium 4.3 Chloride 99 Carbon Dioxide 28.0 Anion Gap 4 L BUN 10 Creatinine 1.00 Estim Creat Clear Calc 90.53 Est GFR (MDRD) Af Amer 99 Est GFR (MDRD) Non-Af 82 BUN/Creatinine Ratio 10.0 Glucose 375 H Calcium 8.9 Troponin I High Sens 4 Radiography X-Ray: Read by ED Physician and Read by Radiologist Diagnostic Testing: Clinical Impression(s) from Imaging Studies Chest X-Ray 12/03/22 12:50 IMPRESSION: Normal x-ray examination of the chest. Electronically Signed: Iban Crespo MD at 13:13 EDT , Chest CTA 12/03/22 14:15 IMPRESSION: Patchy right lower lobe infiltrate with small right pleural effusion. The previously seen abscess in the right upper lobe and right upper lobe infiltration has cleared. Electronically Signed: Iban Crespo MD at 15:09 EDT , EKG Initial EKG: Comments: 85 bpm, normal sinus rhythm, no ST elevation, reviewed and interpreted by attending ED physician <Dr. Taurus Kim, DO - Last Filed: 12/03/22 19:25> [facility] MDM Narrative Medical decision making narrative: Patient presenting today due to shortness of breath on exertion that he has had over the past few days as well as a pain to his right lateral rib cage. He was at work on his hands and knees in a strange position and was twisting and felt a burning sensation in his right lateral rib cage and since then he has felt short of breath on exertion. He reports that every time he takes a deep breath he has a pain in that area. He went to urgent care this morning and they sent him here due to concerns for PE. However, patient has a Wells score of 0. I am able to reproduce the rib pain with palpation. Patient also was told he is on the border of having COPD when he did a spirometry test 1 year ago, he has continued to smoke and I do suspect that patient does have COPD. He does have both inspiratory and expiratory wheezes in all lung pedraza bilaterally to auscultation. Patient will be given Solu-Medrol, breathing treatments. Labs will be obtained to rule out leukocytosis, anemia, electrolyte abnormality, and ACS. On reexamination after the breathing treatments and Solu-Medrol patient reports that he feels much better and his lungs do sound improved. However, patient's O2 saturation has dropped to 88% on room air and he is now 92% on 2 L O2. Given this, D-dimer will be obtained to rule out PE. Patient has an elevated D-dimer, CTA of the chest to be obtained to rule out PE and shows a right lower lobe infiltrate. Patient was ambulated and remained above 95% on room air. He will be started on Levaquin with first dose here and will be given a prescription for prednisone and an albuterol inhaler. He has been given strict return instructions and is to follow-up with his PCP. He will be discharged home in stable condition and is comfortable with plan. This patient was seen with a PA/AIR BRAKE MAN Individually assessed they patient including history and physical. I have reviewed everything on the chart that is available and agree with the documentation provided by the PA/AIR BRAKE MAN including discussion about the assessment, treatment plan, discussion, and return precautions. Patient with burning pain in his right ribs as well as shortness of breath. He was sent for evaluation out of concern for possible PE. Cardiac workup was ultimately negative. Patient had a D-dimer which was elevated so we did obtain a CTA of the chest which shows a right lower lobe pneumonia. Chest x-ray on my interpretation did not show any pneumonia. Patient initially had a drop in his oxygen but I personally ambulated him at the bedside with a pulse ox and he maintained 94 to 95% and he felt great. He wants to go home. He was put on Levaquin and prednisone. He is given an albuterol inhaler. Return precautions were discussed. Lab Data Labs: Laboratory Results - last 24 hr 12/03/22 12:48 WBC 6.9 RBC 4.47 L Hgb 14.3 Hct 43.4 MCV 97.1 H MCH 32.0 MCHC 32.9 RDW Std Deviation 47.4 H RDW Coeff of [place] 13.2 Plt Count 205 MPV 9.6 Immature Gran % (Auto) 1.500 H Neut % (Auto) 66.8 Lymph % (Auto) 18.2 L [place] % (Auto) 9.9 Eos % (Auto) 2.6 Baso % (Auto) 1.0 Absolute Neuts (auto) 4.6 Absolute Lymphs (auto) 1.25 Nucleated RBC % 0 D-Dimer Quant (PE/DVT) 2.05 H* Sodium 131 L Potassium 4.3 Chloride 99 Carbon Dioxide 28.0 Anion Gap 4 L BUN 10 Creatinine 1.00 Estim Creat Clear Calc 90.53 Est GFR (MDRD) Af Amer 99 Est GFR (MDRD) Non-Af 82 BUN/Creatinine Ratio 10.0 Glucose 375 H Calcium 8.9 Troponin I High Sens 4 Radiography Diagnostic Testing: Clinical Impression(s) from Imaging Studies Chest X-Ray 12/03/22 12:50 IMPRESSION: Normal x-ray examination of the chest. Electronically Signed: Iban Crespo MD at 13:13 EDT , Chest CTA 12/03/22 14:15 IMPRESSION: Patchy right lower lobe infiltrate with small right pleural effusion. The previously seen abscess in the right upper lobe and right upper lobe infiltration has cleared. Electronically Signed: Iban Crespo MD at 15:09 EDT , Discharge Plan Triage Chief Complaint: Shortness of Breath ED Midlevel Provider: Ping Hickman ED Provider: Taurus Kim Dx/Rx/DC Orders Clinical Impression: SOB (shortness of breath), Pneumonia Instructions: ED Dyspnea, ED Pneumonia (Adult) Prescriptions: New albuterol sulfate [Ventolin HFA] 90 mcg/actuation HFA aerosol inhaler 1 - 2 puff inhalation Q4H PRN PRN (Reason: Wheezing) Qty: 1 0RF prednisone 20 mg tablet 40 mg PO DAILY 4 Days Qty: 8 0RF levofloxacin 750 mg tablet 750 mg PO DAILY 4 Days Qty: 4 0RF No Action lisinopril 20 MG tablet 40 mg PO DAILY paroxetine HCl 20 MG tablet 20 mg PO DAILY atenolol 50 MG tablet 50 mg PO DAILY naproxen 500 MG tablet 500 mg PO BID PRN Qty: 20 0RF lovastatin 10 MG tablet 10 mg PO DAILY aspirin 81 MG tablet,chewable 1 tablet PO DAILY metformin 500 mg tablet extended release 24 hr 500 mg PO BID Patient Comments: TAKE 1 TABLET BY MOUTH TWICE A DAY BEFORE MEALS tadalafil 20 mg tablet 20 mg PO DAILY Patient Comments: Take 1 tablet by mouth once daily. Or as instructed by physician Primary Care Provider: Eligio Lyman Referrals: Eligio Lyman MD [Primary Care Provider] - 3-5 Days Activity Restrictions/Additional Instructions: Please return for any worsening of your symptoms and follow-up with your PCP in 3 to 5 days. Disposition Disposition: Home, Self Care Discharge Date/Time: 12/03/22 15:27
[2022-12-03 13:13] LABS: Anion Gap 4 (5-15); BUN 10 mg/dL (7-18); Calcium,Total 8.9 mg/dL (8.5-10.1); Chloride 99 mmol/L (98-107); EST Glomerular Filtration Rate 82 mL/min (>60); Est Glom Filt Rate - Afr Amer 99 mL/min (>60); Estimated Creatinine Clearance 90.53 ml/min; Glucose 375 mg/dL (74-106); Potassium 4.3 mmol/L (3.5-5.1); Sodium Level 131 mmol/L (136-145); Troponin-I HS 4 pg/mL (3.0-78.0)
[2022-12-03 13:39] VITALS: BP 144/86; PULSE 86; RESP 16; O2SAT 88; O2SAT 92
[2022-12-03 14:13] LABS: D-Dimer Quantitative (DVT/PE) 2.05 FEU/ug/m (0.27-0.49)
--- NOTE | 2022-12-03 14:15 | CT_ITS ---
STUDY: CTA CHEST REASON FOR EXAM: Male, 57 years old. SOB, elevated d-dimer, hypoxia. History of prior right lung abscess. RADIATION DOSAGE (If Supplied By Facility): CTDIvol = ( 12.62 ) mGy, DLP = ( 1076.52 ) mGycm TECHNIQUE: The examination was performed with the intravenous administration of IV 100mL Isovue-370. Post-processing of the angiographic images was performed, with multiplanar reformation and 3D reconstruction. Individualized dose optimization techniques were used for this CT. COMPARISON: Comparison is made with prior examination dated December 14, 2021. FINDINGS: Normal enhancement of the main pulmonary artery and right and left pulmonary arteries. Normal enhancement of the bilateral peripheral pulmonary arteries. There is no demonstrated pulmonary embolism. Normal thoracic aorta and visualized great vessels. There is no demonstrated aortic dissection. Normal heart and pericardium. Normal mediastinum. Normal hilar regions. Normal visualized trachea and bronchi. The lungs are well expanded. Right lower lobe infiltrate and minimal right pleural effusion. Normal chest wall structures. Normal osseous structures. Normal visualized upper abdomen. CT/CTA Chest W/WO Contrast IMPRESSION: Patchy right lower lobe infiltrate with small right pleural effusion. The previously seen abscess in the right upper lobe and right upper lobe infiltration has cleared. Electronically Signed: Iban Crespo MD at 15:09 EDT ,
[2022-12-03 15:17] VITALS: BP 172/97; PULSE 86; RESP 20; O2SAT 94
[2022-12-03] MEDS: levoFLOXacin 750 MG Tablet PO (15:23)
== END 2022-12-03 15:27 | disposition home or self-care (01) ==
PROVIDERS: Physician Assistant; Emergency Provider Student in an Organized Health Care Education/Training Program; PCP Family Medicine; Visit Provider Student in an Organized Health Care Education/Training Program
DX: J18.9 Pneumonia, unspecified organism (principal); E11.9 Type 2 diabetes mellitus without complications; I10 Essential (primary) hypertension; F17.210 Nicotine dependence, cigarettes, uncomplicated; Z79.82 Long term (current) use of aspirin; Z79.84 Long term (current) use of oral hypoglycemic drugs; Z79.899 Other long term (current) drug therapy
CPT/HCPCS: 71045; 71275; 80048; 84484; 85025; 85379; 93005; 94640; 96374; 99285; Q9967; A4216

== ENCOUNTER 2022-12-09 10:39 | Inpatient (IN) | payer OTHER, SELFPAY ==
[2022-12-09] VITALS (16 sets, daily range): BP systolic 124–155; BP diastolic 74–93; PULSE 74–89; RESP 17–26; TEMP 36.2–38.3; O2SAT 85–94; BMI 37.8; BMI 37.9
--- NOTE | 2022-12-09 11:04 | EKG12_ITS ---
Test Reason : SOB Blood Pressure : / mmHG Vent. Rate : 085 BPM Atrial Rate : 085 BPM P-R Int : 158 ms QRS Dur : 082 ms QT Int : 358 ms P-R-T Axes : 062 -13 041 degrees QTc Int : 426 ms Normal sinus rhythm Possible Left atrial enlargement Borderline ECG Confirmed by KAROLINA ROCHA ([id number]), script editor COLIN COWART ([id number]) on 12/10/2022 11:25:12 AM Referred By: CHICHI Confirmed By:KAROLINA ROCHA
--- NOTE | 2022-12-09 11:05 | ED.VIS.DYS ---
HPI History of Present Illness Chief Complaint: Shortness of Breath PFSH PFSH Medical History Hypertension Non-insulin dependent diabetes mellitus Home Medications atenolol 50 mg tablet 50 mg PO DAILY 03/01/20 [History Last Taken Unknown] lisinopril 20 mg tablet 40 mg PO DAILY 03/01/20 [History Last Taken Unknown] paroxetine HCl 20 mg tablet 20 mg PO DAILY 03/01/20 [History Last Taken Unknown] naproxen 500 mg tablet 500 mg PO BID PRN #20 tabs 03/02/20 [Rx Last Taken Unknown] aspirin 81 mg chewable tablet 1 tablet PO DAILY 08/07/20 [History Last Taken Unknown] lovastatin 10 mg tablet 10 mg PO DAILY 08/07/20 [History Last Taken Unknown] albuterol sulfate 90 mcg/actuation aerosol inhaler (Ventolin HFA) 1 - 2 puff inhalation Q4H PRN PRN Wheezing #1 inh 12/03/22 [Rx Last Taken Unknown] levofloxacin 750 mg tablet 750 mg PO DAILY 4 days #4 tabs 12/03/22 [Rx Last Taken Unknown] metformin 500 mg tablet,extended release 24 hr 500 mg PO BID 12/03/22 [History Last Taken Unknown] prednisone 20 mg tablet 40 mg (2 x 20 mg) PO DAILY 4 days #8 tabs 12/03/22 [Rx Last Taken Unknown] tadalafil 20 mg tablet 20 mg PO DAILY 12/03/22 [History Last Taken Unknown] Allergy/AdvReac Type Severity Reaction Status Date / Time tree nut Allergy Anaphylaxis Verified 12/09/22 10:40 Surgical History Hx of cholecystectomy Social History Smoking Status: Current every day smoker tobacco type: cigarettes EXAM Physical Exam Const Vital Signs: 12/09/22 10:40 12/09/22 10:49 12/09/22 10:50 Temperature 98.9 F Temperature Source Temporal Pulse Rate 87 Respiratory Rate 20 H Respiratory Effort Short of Breath Respiratory Depth Normal Respiratory Pattern Tachypnea Blood Pressure 138/90 H Blood Pressure Mean 106 Pulse Ox 92 85 Oxygen Delivery Method Room Air Room Air Room Air MDM MDM MDM Narrative Medical decision making narrative: HISTORY OF PRESENT ILLNESS: 57-year-old male here with shortness of breath, right-sided chest pain. States he was recently seen in the ED and evaluated for right-sided pneumonia and finished a course of azithromycin but currently still has symptoms of cough and shortness of breath. No fever. The patient denies recent surgery in the last 4 weeks or immobilization in the last 3 days, denies previous diagnosis of DVT or PE, hemoptysis, unilateral leg swelling or malignancy with treatment the last 6 months. No estrogen use noted. Patient denies sudden onset of pain, no tearing sensation, no migratory symptoms, no new numbness, weakness or loss of sensation. Patient denies family history or personal history of Connective tissue disorders (Marfan's Syndrome, Gina Danlos etc). Notes history of smoking and COPD. Does not wear oxygen at home. REVIEW OF SYSTEMS: Pertinent positives: Cough, shortness of breath Pertinent negatives: Syncope, unilateral leg swelling, lower extremity edema PHYSICAL EXAM: Nursing triage notes reviewed, Vital signs reviewed Constitutional: please see mdm HENT: MMM Eyes: Pupils equal round and reactive to light, Extraocular muscles intact Neck: No stridor, no JVD, full neck ROM Lungs: Diminished breath sounds in right lung pedraza, prolonged expiratory phase, slight wheezing noted on expiration. No increased work of breathing, no conversational dyspnea, no accessory muscle use, no nasal flaring. No respiratory distress noted Heart: Regular rate and rhythm, No murmurs, No rubs and No gallops, 2+ distal pulses (radial, femoral, posterior tibial) in all extremities Abdomen: Soft, there is no tenderness, rigidity, rebound or guarding, no obvious peritoneal signs, no palpable pulsatile abdominal masses, no auscultated abdominal bruit : No CVAT Extremities: No edema Neuro: No focal neurological deficits, cranial nerves II through XII intact, 5/5 strength in all extremities. Intact sensation to light touch in all extremities, 2+ reflexes bilateral patella tendons. Normal gait. No ataxia. Skin: No rash or lesions noted MEDICAL DECISION MAKING: Chief Complaint: Shortness of breath External records reviewed: Seen 6 days ago diagnosed with pneumonia and prescribed antibiotics and discharged. Imaging studies reviewed: CTA of the chest from 12/03/2022 shows IMPRESSION: Patchy right lower lobe infiltrate with small right pleural effusion. The previously seen abscess in the right upper lobe and right upper lobe infiltration has cleared. Factors affecting care: Hypertension, COPD, Social determinants of health: Current tobacco user History obtained from others: none Consults: Internal medicine ALL IMAGES (IF OBTAINED) HAVE BEEN PERSONALLY REVIEWED AND INTERPRETED BY MYSELF. EKG with normal sinus rhythm, left axis deviation, normal intervals, no obvious STEMI MDM Narrative: Patient was initially hypoxic requiring 2 L of a new oxygen requirement is also tachypneic lungs with right-sided asymmetry, noted crackles/rales in the right lung base concerning for focal infiltrate given history of recent diagnosis of pneumonia. I considered the following differential diagnosis: Pneumonia, COVID, flu, ACS, arrhythmia, anemia, PE, CHF I considered PE, consider obtaining a CT of the chest however thought this was not indicated at this time given low risk Wells score and focal lung findings and history is more consistent with pneumonia. I obtain labs to rule out signs of systemic inflammation, myocardial ischemia, COVID, flu and anemia. I obtained a EKG and troponin to rule out myocardial ischemia. Obtained a chest x-ray to assess the patient has signs of pneumonia or heart failure. Chest x-ray showed evidence of right lower lobe pneumonia. EKG troponin were negative for myocardial ischemia. CBC was remarkable for systemic inflammation. COVID and flu test was negative. No obvious anemia on CBC. Gave ceftriaxone azithromycin and admitted for antimicrobial therapy and oxygen therapy. The patient and/or family, caregivers express understanding. The patient and/or family, caregivers agrees with the plan. Shared decision making: I will have a discussion with the patient and or visitors regarding risk/benefits of further testing or admission. They will be made aware of of the risk/benefits inherent in this decision they will be given the opportunity to voice understanding. Total critical care time today provided was at least 0 minutes. This excludes separately billable procedures. Critical care time (if documented) is secondary to the patient having high probability of clinically significant/life threatening deterioration in the patient's condition which required my urgent intervention. Discharge Plan Triage Chief Complaint: Shortness of Breath ED Provider: Zack Johnson Dx/Rx/DC Orders Clinical Impression: Hypoxia, SOB (shortness of breath), Pneumonia, COPD with exacerbation Prescriptions: No Action lisinopril 20 MG tablet 40 mg PO DAILY paroxetine HCl 20 MG tablet 20 mg PO DAILY atenolol 50 MG tablet 50 mg PO DAILY naproxen 500 MG tablet 500 mg PO BID PRN Qty: 20 0RF lovastatin 10 MG tablet 10 mg PO DAILY aspirin 81 MG tablet,chewable 1 tablet PO DAILY metformin 500 mg tablet extended release 24 hr 500 mg PO BID Patient Comments: TAKE 1 TABLET BY MOUTH TWICE A DAY BEFORE MEALS tadalafil 20 mg tablet 20 mg PO DAILY Patient Comments: Take 1 tablet by mouth once daily. Or as instructed by physician albuterol sulfate [Ventolin HFA] 90 mcg/actuation HFA aerosol inhaler 1 - 2 puff inhalation Q4H PRN PRN (Reason: Wheezing) Qty: 1 0RF prednisone 20 mg tablet 40 mg PO DAILY 4 Days Qty: 8 0RF levofloxacin 750 mg tablet 750 mg PO DAILY 4 Days Qty: 4 0RF Primary Care Provider: Eligio Lyman Referrals: Eligio Lyman MD [Primary Care Provider] - Disposition Disposition: Acute Care Hospital [facility]
[2022-12-09] MEDS: 0.9% Normal Saline 1,000 ML 999 ML IV (11:09)
[2022-12-09] MEDS: Ipratropium/Albuterol Sulfate 3 ML AMPUL.NEB INHALATION ×2 (11:17→19:08)
[2022-12-09 11:22] LABS: Absolute Lymphocyte Count 1.01 X10^3/uL (0.83-4.51); Absolute Neutrophil Count 8.6 X10^3/uL (2.0-7.7); Basophil# 0.08 X10^3/uL; Basophil% 0.7 % (0-1); Eosinophil# 0.24 X10^3/uL; Eosinophils% 2.1 % (0-5); Hematocrit 45.2 % (40-54); Hemoglobin 14.8 g/dL (13.0-16.5); Lymphocyte # 1.01 X10^3/ul (0.83-4.51); Lymphocyte % 8.9 % (19-41); Mean Corp Hgb Conc 32.7 g/dL (32-36); Mean Corpuscular Volume 97.6 fL (80-94); Mean Platelet Vol. 9.3 fl (6.2-12.0); Monocyte% 10.6 % (0-10); NRBC Flagged by Analyzer 0 % (0-5); Neutrophil # 8.58 X10^3/uL (2.7-7.7); Neutrophil % 76.1 % (47-70); Platelet Count 261 K/mm3 (150-450); RBC Distribution Width CV 13.2 % (11.6-14.6); RBC Distribution Width SD 47.8 fl (35.1-43.9); Red Blood Count 4.63 M/mm3 (4.6-6.2); White Blood Count 11.3 K/mm3 (4.4-11.0)
[2022-12-09 11:36] LABS: Anion Gap 3 (5-15); BUN 12 mg/dL (7-18); BUN/Creat Ratio 14.8 RATIO (10-20); Calcium,Total 9.1 mg/dL (8.5-10.1); Chloride 98 mmol/L (98-107); Creatinine, Serum 0.81 mg/dL (0.70-1.30); EST Glomerular Filtration Rate 104 mL/min (>60); Est Glom Filt Rate - Afr Amer 126 mL/min (>60); Estimated Creatinine Clearance 111.77 ml/min; Glucose 246 mg/dL (74-106); Potassium 4.3 mmol/L (3.5-5.1); Sodium Level 128 mmol/L (136-145); Troponin-I HS 4 pg/mL (3.0-78.0)
[2022-12-09 11:44] LABS: BNP,B-Type NATRIURETIC PEPTIDE 14.5 pg/mL (0-100)
--- NOTE | 2022-12-09 11:46 | RAD_ITS ---
STUDY: X-RAY CHEST REASON FOR EXAM: Male, 57 years old. Hypoxia, cough TECHNIQUE: AP and lateral views of the chest. COMPARISON: Comparison is made with prior study December 03, 2022. FINDINGS: EKG electrodes are seen. There is evidence of consolidation in the superior segment of the right lower lobe as well as at the right mid lung. There is no demonstrated pleural abnormality. Normal size heart. Normal mediastinum and huseyin. Normal visualized pulmonary arteries. Normal visualized aortic arch and descending thoracic aorta. Normal visualized thoracic spine. Normal visualized ribs, clavicles, and shoulders. There is no demonstrated abnormality of the visualized soft tissue structures of the upper abdomen. RAD/Chest PA and Lateral IMPRESSION: Right lower lobe and right middle lobe infiltrates. Electronically Signed: Iban Crespo MD at 12:33 EDT ,
[2022-12-09 11:49] LABS: Lactic Acid 1.2 mmol/L (0.4-1.9)
[2022-12-09] MEDS: Ceftriaxone 1 GM/50 ML BAG IV (12:54)
--- NOTE | 2022-12-09 13:06 | HP.PCM.HOS_ITS ---
HPI - General General Date of Admission: 12/09/22 Date of Service: 12/09/22 Chief Complaint: Shortness of breath HPI Narrative CECI RAMIRES, is a 57 M who presented to the emergency department at [facility] on 12/09/2022 with a chief complaint of shortness of breath. The patient was in the emergency department on 12/03/2022 and was diagnosed with pneumonia. He had a CTA of his chest and a chest x-ray that showed a right-sided pneumonia at that time. He was discharged on room air on Levaquin. He completed Levaquin on Wednesday morning and states on Wednesday evening he was started to feel poorly again. He did indicate that he felt better while he was on the Levaquin. He was also discharged with a prednisone burst. He states that he still coughing and his cough is productive of white phlegm and that he is more short of breath. He denies any fever or chills. He denies nausea or vomiting, constipation or diarrhea. He has had no nasal congestion or headache. Patient did complain of right-sided pleuritic chest pain with deep breathing. He stated this was present on previous presentation when he had a CTA of his chest. Vital signs on presentation showed temperature 98.9, heart rate 87, blood pressure 138/90, respiratory rate 20 and oxygen saturations were initially 92% on room air however he desatted to 85% on room air and was placed on 2 L nasal cannula with improvement to his oxygen to 94%. They did try again to wean him and he desatted to 97% on room air. CBC showed a leukocytosis with a left shift. Chemistry panel shows a chronic hyponatremia with a sodium of 128 but was otherwise unremarkable. Serum glucose is 246. Lactic acid was normal at 1.2. Troponin was 4 and BNP was 14.5. His EKG was unremarkable. Chest x-ray right lower lobe and right middle lobe infiltrates. He was started on azithromycin and ceftriaxone by the emergency department and request for admission was made. FORMERLY [facility], [facility]–1983 Medical History Alcohol abuse Alcohol abuse, daily use Hypertension Non-insulin dependent diabetes mellitus Smoker Tobacco abuse Home Medications atenolol 50 mg tablet 50 mg PO DAILY elevated bp 03/01/20 [History Last Taken 12/09/22] lisinopril 20 mg tablet 40 mg PO DAILY hyertension 03/01/20 [History Last Taken 12/09/22] paroxetine HCl 20 mg tablet 20 mg PO DAILY emotional support 03/01/20 [History Last Taken 12/09/22] aspirin 81 mg chewable tablet 1 tablet PO DAILY heart health 08/07/20 [History Last Taken Unknown] lovastatin 10 mg tablet 10 mg PO DAILY elevated cholesterol 08/07/20 [History Last Taken 12/09/22] albuterol sulfate 90 mcg/actuation aerosol inhaler (Ventolin HFA) 1 - 2 puff inhalation Q4H PRN PRN Wheezing #1 inh 12/03/22 [Rx Last Taken Unknown] metformin 500 mg tablet,extended release 24 hr 500 mg PO BID diabetes 12/03/22 [History Last Taken Unknown] Allergy/AdvReac Type Severity Reaction Status Date / Time tree nut Allergy Anaphylaxis Verified 12/09/22 10:40 no significant family history Surgical History Hx of cholecystectomy Social History (Updated 12/09/22 @ 16:[address] Zuly Santiago DO) household members: spouse housing: house current occupational status: employed Smoking Status: Current every day smoker tobacco type: cigarettes alcohol intake: current alcohol intake frequency: 3 or more drinks per day details: 6-7 beers daily substance use type: does not use ROS Constitutional Constitutional: Denies anorexia, change in weight, chills, fatigue, fever(s), malaise, night sweats, weakness or other Eyes Eyes: Denies blurry vision, change in eye color, change in vision, discharge from eye(s), double vision, erythema, eye pain, loss of vision or other ENT HEENT: Denies abnormal hearing, dysphagia, ear pain, epistaxis, headache(s), hearing loss, nasal congestion, nasal discharge, post nasal drip, sinus pressure, sore throat or other Cardiovascular Cardiovascular: Reports dyspnea on exertion; Denies chest pain, claudication, edema, lightheadedness, orthopnea, palpitations, paroxysmal nocturnal dyspnea, rapid heart rate, syncope or other Respiratory/Chest Respiratory/Chest: Reports cough, dyspnea, productive cough, shortness of breath at rest, shortness of breath with exertion and wheezing; Denies excessive phlegm production, hemoptysis or other Gastrointestinal Gastrointestinal: Denies abdominal pain, coffee ground emesis, constipation, diarrhea, dyspepsia, hematemesis, hematochezia, loose stools, melena, nausea, vomiting or other Genitourinary Genitourinary: Denies burning urination, difficulty urinating, dysuria, hematuria, nocturia, urinary frequency, urinary hesitancy, urinary incontinence, urinary urgency or other Musculoskeletal Musculoskeletal: Reports back pain; Denies arthralgias, joint pain, joint stiffness, joint swelling, myalgias, neck pain or other Neurologic Neurologic: Denies abnormal gait, abnormal speech, confusion, disequilibrium, dizziness, focal weakness, headache(s), numbness, paresthesias, seizure-like activity, seizures, syncope, tingling, tremor(s) or other Psychiatric Psychiatric: Denies anxiety, depression, homicidal ideation, suicidal ideation or other Endocrine Endocrinology: Denies change in body appearance, cold intolerance, excessive sweating, heat intolerance, polydipsia, polyuria or other Hematologic/Lymphatic Hematologic/Lymphatic: Denies anemia, easy bleeding, easy bruising, lymphadenopathy or other Allergic/Immunologic Allergic/Immunologic: Denies rhinitis, hives, eczemia, asthma or other Vital Signs Vital Signs Vital Signs: 12/09/22 10:40 12/09/22 10:49 12/09/22 10:50 Temperature 98.9 F Temperature Source Temporal Pulse Rate 87 Respiratory Rate 20 H Respiratory Effort Short of Breath Respiratory Depth Normal Respiratory Pattern Tachypnea Blood Pressure 138/90 H Blood Pressure Mean 106 Pulse Ox 92 85 Oxygen Delivery Method Room Air Room Air Room Air Oxygen Flow Rate (L/min) 12/09/22 11:18 12/09/22 11:18 12/09/22 11:32 Temperature Temperature Source Pulse Rate 83 Respiratory Rate 19 H Respiratory Effort Respiratory Depth Respiratory Pattern Normal Blood Pressure Blood Pressure Mean Pulse Ox 94 92 Oxygen Delivery Method Nasal Cannula Room Air Oxygen Flow Rate (L/min) 2 Weight Weight: 126.3 kg Body Mass Index (BMI) 37.8 Physical Exam Const alert, oriented x3, no apparent distress and well nourished; Negative for average body habitus Constitutional Narrative: Obese, middle-aged, white male, sitting up in a chair at the bedside, at bedside, patient appears comfortable and nontoxic HEENT normocephalic, head/scalp atraumatic, hearing grossly normal bilaterally and moist oral mucous membranes HEENT Narrative: Mallampati 3, no thrush, dentition is poor Resp No normal respiratory effort, no retractions and no use of accessory muscles Resp Narrative: Mild tachypnea noted on exam, no signs of extremis, few scattered wheeze with crackles on the right base and middle lobe Auscultation: rales and wheezes; Negative for rhonchi Cardio regular rate, regular rhythm, S1 normal heart sound, S2 normal heart sound, no murmurs, no rub, no gallops and no clicks GI normal to inspection, nondistended, normoactive bowel sounds, soft to palpation and non-tender Extremity no clubbing, cyanosis or edema Extremity Narrative: Pedal pulses are 2+, radial pulses Neuro oriented x3, moves all extremities and no focal motor deficits Speech: speech normal Psych affect normal Psych Narrative: Very pleasant, interacts appropriately, eye contact is good Results Lab / Micro Data Attestation: I reviewed the patient's lab results. 12/09/22 11:10 12/09/22 11:10 Labs: Laboratory Results - last 24 hr 12/09/22 11:10: WBC 11.3 H, RBC 4.63, Hgb 14.8, Hct 45.2, MCV 97.6 H, MCH 32.0, MCHC 32.7, RDW Std Deviation 47.8 H, RDW Coeff of [place] 13.2, Plt Count 261, MPV 9.3, Immature Gran % (Auto) 1.600 H, Neut % (Auto) 76.1 H, Lymph % (Auto) 8.9 L, Titus % (Auto) 10.6 H, Eos % (Auto) 2.1, Baso % (Auto) 0.7, Absolute Neuts (auto) 8.6 H, Absolute Lymphs (auto) 1.01, Nucleated RBC % 0, Sodium 128 L, Potassium 4.3, Chloride 98, Carbon Dioxide 27.0, Anion Gap 3 L, BUN 12, Creatinine 0.81, E stim Creat Clear Calc 111.77, Est GFR (MDRD) Af Amer 126, Est GFR (MDRD) Non-Af 104, BUN/Creatinine Ratio 14.8, Glucose 246 H, Lactic Acid 1.2, Calcium 9.1, Troponin I High Sens 4, B-Natriuretic Peptide 14.5 Micro: Microbiology 12/09/22 11:10 Nasal Secretion SARS-CoV-2 & FLU Antigen (Rapid) - Final Radiology Impression Chest X-Ray 12/09/22 11:46 IMPRESSION: Right lower lobe and right middle lobe infiltrates. Electronically Signed: Iban Crespo MD at 12:33 EDT , Assessment & Plan Assessment/Plan (1) COPD with exacerbation: (2) Hypoxia: (3) Pneumonia: (4) Leukocytosis: (5) Hyponatremia: PLAN: Plan Acute hypoxia due to pneumonia and acute exacerbation of COPD -Chest x-ray consistent with pneumonia and patient has elevated white count -Completed outpatient course of Levaquin for 5 days -Required 2 L of oxygen to maintain sats greater than 88% the emergency department -Wean as able -Check ambulatory prior to discharge -Ceftriaxone and azithromycin initiated the emergency department--> continue with these for now -Check strep pneumo Legionella antigens -Check sputum culture if able -Check respiratory viral panel -COVID and flu are negative -Aggressive pulmonary toilet with scheduled and as needed nebulizers -I-S -Acapella Leukocytosis -Likely secondary to the above -Repeat CBC in a.m. COPD -Patient had PFTs on 01/20/2022 that demonstrate irreversible moderate large airway obstructive ventilatory defect with preserved lung volumes and diffusing capacity -FEV1 was 64% predicted -Would recommend outpatient follow-up for pulmonary medicine History of lung abscess on right -Resolved on CT from 12/03/2022 -Had been following outpatient with pulmonary medicine Hyponatremia -Appears to be chronic and currently close to baseline -Repeat BMP in a.m. DM-2 -Hold home metformin -SSI -Accu-Cheks as ordered -Carb controlled diet Hypertension -Continue home lisinopril -Continue home atenolol Hyperlipidemia -Continue home statin Depression -Continue home paroxetine Alcohol abuse -Patient drinks 6 to 7 years daily -Has gone for some time without consuming with no withdrawal issues -Monitor for any signs of withdrawal Tobacco abuse -Still smoking approximately 1 pack of cigarettes a day -Recommend smoking cessation and discussed on admission -Nicotine patch available if needed Obesity -BMI 37.9 -Recommend weight loss -Complicates treatment, prognosis, outcomes DVT prophylaxis -Lovenox 40 daily CODE STATUS Full code Charges/Coding Visit Charges Inpatient E&M: 14316 Init Hosp L2
--- NOTE | 2022-12-09 13:43 | NURSING ---
MED SURG CELESTE ACUTE HYPOXIA, PNEUMONIA
[2022-12-09] MEDS: Acetaminophen 325 MG Tablet 650 MG PO (15:24)
[2022-12-09] MEDS: Methylprednisolone Sod Succ 40 MG/ML VIAL IV ×2 (15:56→20:39)
[2022-12-09] MEDS: Albuterol 2.5 MG/3 ML VIAL.NEB. INHALATION (16:06)
[2022-12-09] MEDS: Insulin Lispro 100 UNIT/ML INSULN.PEN SC (16:35)
[2022-12-09] MEDS: guaiFENesin 1,200 MG Tablet 1200 MG PO (20:39)
[2022-12-09] MEDS: Atorvastatin Calcium 10 MG Tablet 5 MG PO (20:39)
[2022-12-09 21:55] LABS: Bedside Glucose 270 mg/dL (74-106)
[2022-12-10] VITALS (13 sets, daily range): BP systolic 126–158; BP diastolic 83–91; PULSE 80–89; RESP 18–20; TEMP 36.7–37.1; O2SAT 86–93
[2022-12-10 00:36] LABS: Bedside Glucose 389 mg/dL (74-106)
[2022-12-10] MEDS: Ipratropium/Albuterol Sulfate 3 ML AMPUL.NEB INHALATION ×4 (00:59→19:28)
[2022-12-10] MEDS: Insulin Lispro 100 UNIT/ML INSULN.PEN SC ×3 (06:05→16:32)
[2022-12-10] MEDS: Methylprednisolone Sod Succ 40 MG/ML VIAL IV ×3 (06:06→22:00)
[2022-12-10 06:37] LABS: Bedside Glucose 312 mg/dL (74-106)
[2022-12-10 06:40] LABS: Absolute Lymphocyte Count 0.72 X10^3/uL (0.83-4.51); Absolute Neutrophil Count 11.9 X10^3/uL (2.0-7.7); Basophil# 0.04 X10^3/uL; Basophil% 0.3 % (0-1); Eosinophil# 0.09 X10^3/uL; Eosinophils% 0.7 % (0-5); Hematocrit 45.1 % (40-54); Hemoglobin 14.5 g/dL (13.0-16.5); Lymphocyte # 0.72 X10^3/ul (0.83-4.51); Lymphocyte % 5.2 % (19-41); Mean Corp Hgb Conc 32.2 g/dL (32-36); Mean Corpuscular Hgb 31.8 pg (27.0-32.0); Mean Corpuscular Volume 98.9 fL (80-94); Mean Platelet Vol. 9.3 fl (6.2-12.0); Monocyte# 0.83 X10^3/uL; NRBC Flagged by Analyzer 0 % (0-5); Neutrophil # 11.92 X10^3/uL (2.7-7.7); Neutrophil % 86.1 % (47-70); Platelet Count 281 K/mm3 (150-450); RBC Distribution Width CV 13.2 % (11.6-14.6); RBC Distribution Width SD 48.3 fl (35.1-43.9); Red Blood Count 4.56 M/mm3 (4.6-6.2); White Blood Count 13.8 K/mm3 (4.4-11.0)
[2022-12-10 07:35] LABS: ALB/GLOB Ratio 0.5 RATIO (0.9-2.4); AST(SGOT) 16 U/L (15-37); Alanine Aminotransfer ALT/SGPT 49 U/L (16-61); Albumin, Serum 2.8 g/dL (3.2-5.0); Alkaline Phosphatase 89 U/L (45-117); Anion Gap 5 (5-15); BUN 14 mg/dL (7-18); BUN/Creat Ratio 16.2 RATIO (10-20); Calcium,Total 9.1 mg/dL (8.5-10.1); Chloride 98 mmol/L (98-107); Creatinine, Serum 0.87 mg/dL (0.70-1.30); EST Glomerular Filtration Rate 97 mL/min (>60); Est Glom Filt Rate - Afr Amer 117 mL/min (>60); Estimated Creatinine Clearance 104.06 ml/min; Globulin 5.3 g/dL (2.2-4.2); Glucose 317 mg/dL (74-106); Magnesium 2.5 mg/dL (1.6-2.6); Phosphorus 3.1 mg/dL (2.5-4.9); Potassium 4.5 mmol/L (3.5-5.1); Protein, Total 8.1 g/dL (6.4-8.2); Sodium Level 131 mmol/L (136-145)
[2022-12-10] MEDS: Aspirin 81 MG TAB.CHEW PO (07:41)
--- NOTE | 2022-12-10 09:51 | PCM.PN.HOSP ---
Reason for Visit Reason for Visit: Diagnoses Elevated white blood cell count, unspecified (12/09/22) Hypo-osmolality and hyponatremia (12/09/22) Pneumonia, unspecified organism (12/09/22) Chronic obstructive pulmonary disease with (acute) exacerbation (12/09/22) Hypoxemia (12/09/22) Subjective Subjective Follow-up for pneumonia Objective Data Objective Data Vital Signs: Vital Signs Temp Pulse Resp BP Pulse Ox O2 Del Method O2 Flow Rate 98.7 F 89 18 151/90 H 92 Nasal Cannula 3 12/10/22 07:42 12/10/22 07:42 12/10/22 07:42 12/10/22 07:42 12/10/22 07:42 12/10/22 07:42 12/10/22 07:42 Oxygen Flow Rate (L/min) 3 Oxygen Delivery Method Nasal Cannula Weight: 279 lb 12.266 oz Body Mass Index (BMI) 37.9 Intake & Output: Intake and Output for Last 24 Hours 12/08/22 12/09/22 12/10/22 23:59 23:59 23:59 Intake Total 1605 / 1605 250 / 250 Balance 1605 / 1605 250 / 250 Lab / Micro Data 12/10/22 06:10 12/10/22 06:10 Labs: Laboratory Results - last 24 hr 12/09/22 11:10: WBC 11.3 H, RBC 4.63, Hgb 14.8, Hct 45.2, MCV 97.6 H, MCH 32.0, MCHC 32.7, RDW Std Deviation 47.8 H, RDW Coeff of [place] 13.2, Plt Count 261, MPV 9.3, Immature Gran % (Auto) 1.600 H, Neut % (Auto) 76.1 H, Lymph % (Auto) 8.9 L, [place] % (Auto) 10.6 H, Eos % (Auto) 2.1, Baso % (Auto) 0.7, Absolute Neuts (auto) 8.6 H, Absolute Lymphs (auto) 1.01, Nucleated RBC % 0, Sodium 128 L, Potassium 4.3, Chloride 98, Carbon Dioxide 27.0, Anion Gap 3 L, BUN 12, Creatinine 0.81, Estim Creat Clear Calc 111.77, Est GFR (MDRD) Af Amer 126, Est GFR (MDRD) Non-Af 104, BUN/Creatinine Ratio 14.8, Glucose 246 H, Lactic Acid 1.2, Calcium 9.1, Troponin I High Sens 4, B-Natriuretic Peptide 14.5 12/09/22 16:14: POC Glucose 270 H 12/09/22 20:43: POC Glucose 389 H 12/10/22 06:03: POC Glucose 312 H 12/10/22 06:10: WBC 13.8 H, RBC 4.56 L, Hgb 14.5, Hct 45.1, MCV 98.9 H, MCH 31.8, MCHC 32.2, RDW Std Deviation 48.3 H, RDW Coeff of [place] 13.2, Plt Count 281, MPV 9.3, Immature Gran % (Auto) 1.700 H, Neut % (Auto) 86.1 H, Lymph % (Auto) 5.2 L, [place] % (Auto) 6.0, Eos % (Auto) 0.7, Baso % (Auto) 0.3, Absolute Neuts (auto) 11.9 H, Absolute Lymphs (auto) 0.72 L, Nucleated RBC % 0, Sodium 131 L, Potassium 4.5, Chloride 98, Carbon Dioxide 28.0, Anion Gap 5, BUN 14, Creatinine 0.87, Estim Creat Clear Calc 104.06, Est GFR (MDRD) Af Amer 117, Est GFR (MDRD) Non-Af 97, BUN/Creatinine Ratio 16.2, Glucose 317 H, Calcium 9.1, Phosphorus 3.1, Magnesium 2.5, Total Bilirubin 0.70, AST 16, ALT 49, Alkaline Phosphatase 89, Total Protein 8.1, Albumin 2.8 L, Globulin 5.3 H, Albumin/Globulin Ratio 0.5 L Micro: Microbiology 12/09/22 19:20 Mucosa - Nasopharyngeal Respiratory Panel (PCR) - Final 12/09/22 23:15 Urine, Clean Catch Legionella Antigen - Final 12/09/22 23:15 Urine, Clean Catch Streptococcus pneumoniae Antigen (M - Final 12/09/22 11:10 Nasal Secretion SARS-CoV-2 & FLU Antigen (Rapid) - Final Radiography Diagnostic Testing: Radiology Impression Chest X-Ray 12/09/22 11:46 IMPRESSION: Right lower lobe and right middle lobe infiltrates. Electronically Signed: Iban Crespo MD at 12:33 EDT , Physical Exam Narrative General: Alert, Oriented x3, Cooperative HEENT: Atraumatic, PERRLA, EOMI, Normocephalic Oral: Oral mucosa dry. No Gingival or Mucosal Lesions/ Ulcerations Neck: Supple, No JVD, Negative Carotid Bruits Lungs: Air entry diminished in bilateral lung bases. Mild right-handedness crepitation. Cardiovascular: Regular rate, Regular Rhythm, Normal S1, Normal S2, No murmurs Abdomen: Bowel Sounds Present, Soft, Non Tender, Non-Distended : No renal angle tenderness. No suprapubic tenderness. Extremities: No edema, Capillary Refill Less than 3 Seconds Skin: No rashes, No breakdown Musculoskeletal: No Tenderness to Palpation of Joints or Extremities Neurological: Cranial nerves II-XII grossly intact, DTR 2+/4. No acute focal neurological deficit. Psych/Mental Status: Normal Affect, Appropriate. Assessment & Plan Assessment/Plan (1) COPD with exacerbation: (2) Hypoxia: (3) Pneumonia: (4) Leukocytosis: (5) Hyponatremia: PLAN: Plan 57-year-old male admitted with shortness of breath cough getting worse even after completing 5 days of Levaquin as an outpatient. History of lung abscess in the past. Recent CT scan showed significance. Acute hypoxia due to pneumonia and acute exacerbation of COPD -Chest x-ray consistent with pneumonia and patient has elevated white count -Completed outpatient course of Levaquin for 5 days -Required 2 L of oxygen to maintain sats greater than 88% the emergency department -Wean as able -Check ambulatory prior to discharge -Ceftriaxone and azithromycin initiated the emergency department--> continue with these for now -Check strep pneumo Legionella antigens Prelim sputum culture shows 2+ GPC, 1+ GNR 2+. Negative for Legionella and Streptococcus -Check respiratory viral panel -COVID and flu are negative -Aggressive pulmonary toilet with scheduled and as needed nebulizers -I-S -Acapella Leukocytosis -Likely secondary to the above -Repeat CBC in a.m. COPD -Patient had PFTs on 01/20/2022 that demonstrate irreversible moderate large airway obstructive ventilatory defect with preserved lung volumes and diffusing capacity -FEV1 was 64% predicted -Would recommend outpatient follow-up for pulmonary medicine History of lung abscess on right -Resolved on CT from 12/03/2022 -Had been following outpatient with pulmonary medicine Hyponatremia -Appears to be chronic and currently close to baseline -Repeat BMP in a.m. DM-2 -Hold home metformin -SSI -Accu-Cheks as ordered -Carb controlled diet Hypertension -Continue home lisinopril -Continue home atenolol Hyperlipidemia -Continue home statin Depression -Continue home paroxetine Alcohol abuse -Patient drinks 6 to 7 years daily -Has gone for some time without consuming with no withdrawal issues -Monitor for any signs of withdrawal Tobacco abuse -Still smoking approximately 1 pack of cigarettes a day -Recommend smoking cessation and discussed on admission -Nicotine patch available if needed Obesity -BMI 37.9 -Recommend weight loss -Complicates treatment, prognosis, outcomes DVT prophylaxis -Lovenox 40 daily CODE STATUS Full code Charges/Coding Visit Charges Inpatient E&M: 20333 Subs Hosp L2
[2022-12-10] MEDS: Lisinopril 20 MG Tablet 40 MG PO (10:41)
[2022-12-10] MEDS: Atenolol 50 MG Tablet PO (10:41)
[2022-12-10] MEDS: Paroxetine 20 MG Tablet PO (10:42)
[2022-12-10] MEDS: guaiFENesin 1,200 MG Tablet 1200 MG PO ×2 (10:42→21:59)
[2022-12-10] MEDS: Enoxaparin 40 MG/0.4 ML Syringe SC (10:50)
[2022-12-10 11:19] LABS: Bedside Glucose 416 mg/dL (74-106)
--- NOTE | 2022-12-10 12:05 | CASEMGMT ---
RN?CM?EDUCATIONAL COORDINATOR?CM?to room to meet with patient for initial transition planning/care coordination?assessment.?RN?CM?introduced self and role at [facility].? Pt voices understanding and consents to?assessment?at this time.? Pt sitting on edge of bed in no distress at this time.? Significant other, Shelley, sitting on bed w/pt. Pt is A/O at this time and answers all questions appropriately.?? Care providers, pharmacy, and demographics verified/updated at this time. PCP: Dr Lyman Specialists: Dr Martin-pulmonology Preferred Pharmacy: [facility] Retail Insurance: [employer] Prescription Benefit:?Yes Living Will/HPOA:?Pt has both LW and HCPOA, who is his niece, Cinda Romero. Cinda is not listed on demographics. Pt states he does not know her phone # at this time to have her added, but he will check into getting this info. LNOK: Niece/POA, Cinda. Sig other, Shelley Living Arrangements: Lives w/[place] in one-story home w/2 steps to enter. Indep w/ADL's. Pt and Shelley share home mgnt tasks. Transportation:?Pt states drives self and states no transportation concerns at this time.?Shelley also drives. DME: ? Denies using any DME. Discussed possible need of Home O2 and home set-up process, should he qualify. Pt states [employer] is his 1st preference of DME co. Shelley states she just ordered a pulse ox and it should be arriving today. HHC/SNF: No hx of either. No needs identified. Pt wishes to return home and states has no concerns with going home at time of discharge.? Pt states smokes 1 PPD and drinks ETOH daily. States he averages 6-7 beers/day, but may have up to 12/day. He declines wanting resources to help quit, stating he likes the taste of it and he does not wish to quit. He states has never had ETOH w/d symptoms before and states he has gone as long as 5 days w/out ETOH. Discussed s/sx's to watch for and LOI WINTERS encouraged pt and [place] to notify staff if he starts to have any symptoms. Pt made aware he can contact as an OP for ETOH resources to stop drinking if he decides in the future he is interested. Pt voices appreciation. CM?to follow for home oxygen needs and any further discharge planning/needs.? Pt and Shelley voice no further concerns/needs at this time.? Advised them to ask for?CM?if any further questions/concerns/needs arise.? They voice understanding. PLAN:??Home w/support of significant other and discharge plans in place. CM to follow for possible need of O2. Kody BSN?RN?CM
[2022-12-10 16:45] LABS: Bedside Glucose 422 mg/dL (74-106)
[2022-12-10] MEDS: Atorvastatin Calcium 10 MG Tablet 5 MG PO (21:59)
[2022-12-11 00:51] LABS: Bedside Glucose 404 mg/dL (74-106)
[2022-12-11] MEDS: Ipratropium/Albuterol Sulfate 3 ML AMPUL.NEB INHALATION ×2 (01:42→06:39)
[2022-12-11 01:44] VITALS: PULSE 82; RESP 16
[2022-12-11 04:20] VITALS: RESP 18
[2022-12-11 04:22] VITALS: BP 149/95; PULSE 78; RESP 18; TEMP 36.6; O2SAT 92
[2022-12-11] MEDS: Insulin Lispro 100 UNIT/ML INSULN.PEN SC ×2 (06:04→11:18)
[2022-12-11] MEDS: Methylprednisolone Sod Succ 40 MG/ML VIAL IV (06:05)
[2022-12-11 06:35] LABS: Bedside Glucose 322 mg/dL (74-106)
[2022-12-11 06:40] VITALS: PULSE 71; RESP 18; O2SAT 94
[2022-12-11 07:14] LABS: Absolute Lymphocyte Count 1.01 X10^3/uL (0.83-4.51); Absolute Neutrophil Count 14.3 X10^3/uL (2.0-7.7); Basophil# 0.03 X10^3/uL; Basophil% 0.2 % (0-1); Hematocrit 44.8 % (40-54); Hemoglobin 14.3 g/dL (13.0-16.5); Lymphocyte # 1.01 X10^3/ul (0.83-4.51); Lymphocyte % 6.1 % (19-41); Mean Corp Hgb Conc 31.9 g/dL (32-36); Mean Corpuscular Hgb 31.6 pg (27.0-32.0); Mean Corpuscular Volume 99.1 fL (80-94); Mean Platelet Vol. 9.3 fl (6.2-12.0); Monocyte# 0.93 X10^3/uL; Monocyte% 5.6 % (0-10); NRBC Flagged by Analyzer 0 % (0-5); Neutrophil # 14.27 X10^3/uL (2.7-7.7); Neutrophil % 86.2 % (47-70); Platelet Count 347 K/mm3 (150-450); RBC Distribution Width CV 13.3 % (11.6-14.6); RBC Distribution Width SD 48.8 fl (35.1-43.9); Red Blood Count 4.52 M/mm3 (4.6-6.2); White Blood Count 16.6 K/mm3 (4.4-11.0)
[2022-12-11 07:34] LABS: Anion Gap 5 (5-15); BUN 20 mg/dL (7-18); BUN/Creat Ratio 20.2 RATIO (10-20); Calcium,Total 9.4 mg/dL (8.5-10.1); Chloride 99 mmol/L (98-107); Creatinine, Serum 0.99 mg/dL (0.70-1.30); EST Glomerular Filtration Rate 83 mL/min (>60); Est Glom Filt Rate - Afr Amer 100 mL/min (>60); Estimated Creatinine Clearance 91.45 ml/min; Glucose 314 mg/dL (74-106); Potassium 4.6 mmol/L (3.5-5.1); Sodium Level 131 mmol/L (136-145)
--- NOTE | 2022-12-11 08:20 | DCINST_ITS ---
Discharge Instructions Diet Discharge Diet: 1800 Calorie Control Diet Activity Discharge Activity: Return to Normal Activity Weight Bearing Status: Weight bearing as tolerated Dressing / Incision Call your doctor if you observe: Fever of 101 or Higher, Coldness, Increased Pain, Numbness or Tingling, Change in Color, Inability to urinate, Inability to have a bowel movement, Shortness of breath, Dizziness, Fainting spells, Swelling in the ankles, Chest pain, Prolonged hiccupping, Increased palpitations (irregular heartbeat) and Calf discomfort Follow Up Care When: IN 2 WEEKS Test Results: Test results from this visit will be discussed in further detail at your follow- up appointment, if applicable. Discharge Plan Admission Admit Date/Time: 12/09/22 12:53 Primary Reason for Your Visit: COPD exacerbation and pneumonia Attending Provider: Francisco Javier Wright Primary Care Provider: Eligio Lyman Consulting Providers: Zuly Santiago Discharge Orders/Prescriptions Prescriptions: New Mucus Relief ER 1,200 mg Tablet Extended Release 12hr 1,200 mg PO BID 7 Days Qty: 14 0RF nicotine 21 mg/24 hr Patch 24 Hour 21 mg transdermal DAILY 28 Days Qty: 28 0RF cefdinir 300 mg capsule 300 mg PO BID 5 Days Qty: 10 0RF prednisone 10 mg tablet 10 mg PO DAILY Qty: 30 0RF Rx Instructions: 40 mg for 3 days 30 mg for 3 days, 20 mg for 3 days,and 10 mg for 3 days glipizide 5 mg tablet 5 mg PO BID 30 Days Qty: 60 0RF Rx Instructions: Hold if glucose less than 130 mg/dl Continued lisinopril 20 MG tablet 40 mg PO DAILY paroxetine HCl 20 MG tablet 20 mg PO DAILY atenolol 50 MG tablet 50 mg PO DAILY lovastatin 10 MG tablet 10 mg PO DAILY aspirin 81 MG tablet,chewable 1 tablet PO DAILY metformin 500 mg tablet extended release 24 hr 500 mg PO BID Patient Comments: TAKE 1 TABLET BY MOUTH TWICE A DAY BEFORE MEALS albuterol sulfate [Ventolin HFA] 90 mcg/actuation HFA aerosol inhaler 1 - 2 puff inhalation Q4H PRN PRN (Reason: Wheezing) Qty: 1 0RF Referrals / Follow Up: Solis Zimmerman DO [Med Staff - Active Staff] - Within 2 Weeks (For COPD exacerbation or pneumonia) Eligio Lyman MD [Primary Care Provider] - Disposition Disposition (needs filled in before D/C Order can be placed): Home, Self Care
[2022-12-11 09:49] VITALS: BP 144/95; PULSE 77; RESP 18; TEMP 36.1; O2SAT 93
[2022-12-11 09:50] VITALS: O2SAT 86; O2SAT 90; O2SAT 92
--- NOTE | 2022-12-11 10:00 | CASEMGMT ---
Pt qualifies for home oxygen. RN CM into pt room, pt has chosen [employer]. Pt aware of homegoing oxygen instructions. Pt has a pox at home. Referral sent to [employer] via [facility]port. Pt nurse updated to take portable tank. Pt denies any further homegoing needs.
[2022-12-11 11:28] LABS: Bedside Glucose 486 mg/dL (74-106)
--- NOTE | 2022-12-11 11:31 | DS.PCM_ITS ---
Providers Date of Admission: 12/09/22 Date of Discharge: 12/11/22 Primary Care Physician: Dr. Eligio Lyman MD Reason For Visit: ACUTE HYPOXIA/PNEUMONIA Diagnosis Discharge Diagnosis (1) COPD with exacerbation: Status: Chronic Code(s): J44.1 - Chronic obstructive pulmonary disease with (acute) exacerbation (2) Hypoxia: Status: Acute Code(s): R09.02 - Hypoxemia (3) Pneumonia: Status: Acute Code(s): J18.9 - Pneumonia, unspecified organism (4) Leukocytosis: Status: Acute Code(s): D72.829 - Elevated white blood cell count, unspecified (5) Hyponatremia: Status: Acute Code(s): E87.1 - Hypo-osmolality and hyponatremia Plan 57-year-old male admitted with shortness of breath cough getting worse even after completing 5 days of Levaquin as an outpatient. History of lung abscess in the past. Recent CT scan showed significance. Acute hypoxia due to right lower lobe pneumonia and acute exacerbation of COPD -Chest x-ray consistent with pneumonia and patient has elevated white count -Completed outpatient course of Levaquin for 5 days -Required 2 L of oxygen to maintain sats greater than 88% the emergency department -Wean as able -Check ambulatory prior to discharge -Ceftriaxone and azithromycin initiated the emergency department--> continue with these for now -Check strep pneumo Legionella antigens Prelim sputum culture shows 2+ GPC, 1+ GNR 2+ appears normal respiratory pipe. Negative for Legionella and Streptococcus Respiratory panel negative. -COVID and flu are negative -Aggressive pulmonary toilet with scheduled and as needed nebulizers Advised to continue incentive respiratory and Pep for 7 more days. Chest x-ray and CTA individually reviewed shows patchy right lower lobe infiltrate and small right listlessly abscess in the right upper lobe has cleared Leukocytosis -Likely secondary to the above -Repeat CBC in a.m. COPD -Patient had PFTs on 01/20/2022 that demonstrate irreversible moderate large airway obstructive ventilatory defect with preserved lung volumes and diffusing capacity -FEV1 was 64% predicted -Would recommend outpatient follow-up for pulmonary medicine History of lung abscess on right -Resolved on CT from 12/03/2022 -Had been following outpatient with pulmonary medicine Hyponatremia -Appears to be chronic and currently close to baseline -Repeat BMP in a.m. DM-2 -SSI -Accu-Chek and cover with Humalog sliding scale -Carb controlled diet 12/11: Patient blood sugar was elevated 486. Probably due to IV Solu-Medrol and patient also. A lot of candies M&M. 18 minutes Humalog insulin ordered. Patient advised to stay but he does not want to stay further therefore advised to check blood sugar at home after 2 hours. Prescription for glipizide 5 mg twice daily given. Patient has metformin at home resumed Hypertension -Continue home lisinopril -Continue home atenolol Hyperlipidemia -Continue home statin Depression -Continue home paroxetine Alcohol abuse -Patient drinks 6 to 7 years daily -Has gone for some time without consuming with no withdrawal issues -Monitor for any signs of withdrawal Tobacco abuse -Still smoking approximately 1 pack of cigarettes a day -Recommend smoking cessation and discussed on admission -Nicotine patch available if needed Obesity -BMI 37.9 -Recommend weight loss -Complicates treatment, prognosis, outcomes DVT prophylaxis -Lovenox 40 daily CODE STATUS Full code Discharge medication reconciliation done. Discharge follow-up instructions completed. Discharge process discussed with the patient and all questions were answered to patient's satisfaction. Total time spent, exact 35 minutes on discharge meds reconciliation, examinati on, coordination of care with nurses and ancillary staff, review of imaging and blood test and discussion with the patient on follow-up instructions. Medications at Discharge Home Medications atenolol 50 mg tablet 50 mg PO DAILY elevated bp 03/01/20 lisinopril 20 mg tablet 40 mg PO DAILY hyertension 03/01/20 paroxetine HCl 20 mg tablet 20 mg PO DAILY emotional support 03/01/20 aspirin 81 mg chewable tablet 1 tablet PO DAILY heart health 08/07/20 lovastatin 10 mg tablet 10 mg PO DAILY elevated cholesterol 08/07/20 albuterol sulfate 90 mcg/actuation aerosol inhaler (Ventolin HFA) 1 - 2 puff inhalation Q4H PRN PRN Wheezing #1 inh 12/03/22 metformin 500 mg tablet,extended release 24 hr 500 mg PO BID diabetes 12/03/22 cefdinir 300 mg capsule 300 mg PO BID 5 days #10 caps 12/11/22 glipizide 5 mg tablet 5 mg PO BID 30 days #60 tabs 12/11/22 guaifenesin 1,200 mg tablet, extended release 12 hr (Mucus Relief ER) 1,200 mg PO BID 7 days #14 tabs 12/11/22 nicotine 21 mg/24 hr daily transdermal patch 21 mg transdermal DAILY 28 days #28 ea 12/11/22 prednisone 10 mg tablet 10 mg PO DAILY #30 tabs 12/11/22 Physical Exam Narrative Seen and examined. Patient on 3 L of oxygen. Does not have home oxygen. Patient does not use CPAP or BiPAP at home. Physical exam General: Alert, Oriented x3, Cooperative HEENT: Atraumatic, PERRLA, EOMI, Normocephalic Oral: Oral mucosa dry. No Gingival or Mucosal Lesions/ Ulcerations Neck: Supple, No JVD, Negative Carotid Bruits Lungs: Air entry diminished in bilateral lung bases. Mild coarse crepitation at right lung base. Cardiovascular: Regular rate, Regular Rhythm, Normal S1, Normal S2, No murmurs Abdomen: Bowel Sounds Present, Soft, Non Tender, Non-Distended : No renal angle tenderness. No suprapubic tenderness. Extremities: No edema, Capillary Refill Less than 3 Seconds Skin: No rashes, No breakdown Musculoskeletal: No Tenderness to Palpation of Joints or Extremities Neurological: Cranial nerves II-XII grossly intact, DTR 2+/4. No acute focal neurological deficit. Psych/Mental Status: Normal Affect, Appropriate. Weight / BMI Weight Weight: 279 lb 12.266 oz Body Mass Index (BMI) 37.9 ABG / Lab / Microbiology Data 12/11/22 06:30 12/11/22 06:30 Laboratory: Laboratory Results - last 24 hr 12/10/22 10:58: POC Glucose 416 H 12/10/22 16:11: POC Glucose 422 H 12/10/22 21:57: POC Glucose 404 H 12/11/22 06:03: POC Glucose 322 H 12/11/22 06:30: WBC 16.6 H, RBC 4.52 L, Hgb 14.3, Hct 44.8, MCV 99.1 H, MCH 31.6, MCHC 31.9 L, RDW Std Deviation 48.8 H, RDW Coeff of [place] 13.3, Plt Count 347, MPV 9.3, Immature Gran % (Auto) 1.900 H, Neut % (Auto) 86.2 H, Lymph % (Auto) 6.1 L, [place] % (Auto) 5.6, Eos % (Auto) 0.0, Baso % (Auto) 0.2, Absolute Neuts (auto) 14.3 H, Absolute Lymphs (auto) 1.01, Nucleated RBC % 0, Sodium 131 L, Potassium 4.6, Chloride 99, Carbon Dioxide 27.0, Anion Gap 5, BUN 20 H, Cre atinine 0.99, Estim Creat Clear Calc 91.45, Est GFR (MDRD) Af Amer 100, Est GFR (MDRD) Non-Af 83, BUN/Creatinine Ratio 20.2 H, Glucose 314 H, Calcium 9.4 Microbiology: Microbiology 12/10/22 03:55 Sputum, Expectorated/Coughed Gram Stain - Final 12/09/22 19:20 Mucosa - Nasopharyngeal Respiratory Panel (PCR) - Final 12/09/22 23:15 Urine, Clean Catch Legionella Antigen - Final 12/09/22 23:15 Urine, Clean Catch Streptococcus pneumoniae Antigen (M - Final 12/09/22 11:10 Nasal Secretion SARS-CoV-2 & FLU Antigen (Rapid) - Final Meaningful Use Info Meaningful Use Diagnoses (Choose all that apply): None applicable Discharge Plan Admission Admit Date/Time: 12/09/22 12:53 Primary Reason for Your Visit: COPD exacerbation and pneumonia Attending Provider: Francisco Javier Wright Primary Care Provider: Eligio Lyman Consulting Providers: Zuly Santiago Discharge Orders/Prescriptions Prescriptions: New Mucus Relief ER 1,200 mg Tablet Extended Release 12hr 1,200 mg PO BID 7 Days Qty: 14 0RF nicotine 21 mg/24 hr Patch 24 Hour 21 mg transdermal DAILY 28 Days Qty: 28 0RF cefdinir 300 mg capsule 300 mg PO BID 5 Days Qty: 10 0RF prednisone 10 mg tablet 10 mg PO DAILY Qty: 30 0RF Rx Instructions: 40 mg for 3 days 30 mg for 3 days, 20 mg for 3 days,and 10 mg for 3 days glipizide 5 mg tablet 5 mg PO BID 30 Days Qty: 60 0RF Rx Instructions: Hold if glucose less than 130 mg/dl Continued lisinopril 20 MG tablet 40 mg PO DAILY paroxetine HCl 20 MG tablet 20 mg PO DAILY atenolol 50 MG tablet 50 mg PO DAILY lovastatin 10 MG tablet 10 mg PO DAILY aspirin 81 MG tablet,chewable 1 tablet PO DAILY metformin 500 mg tablet extended release 24 hr 500 mg PO BID Patient Comments: TAKE 1 TABLET BY MOUTH TWICE A DAY BEFORE MEALS albuterol sulfate [Ventolin HFA] 90 mcg/actuation HFA aerosol inhaler 1 - 2 puff inhalation Q4H PRN PRN (Reason: Wheezing) Qty: 1 0RF Referrals / Follow Up: Solis Zimmerman DO [Med Staff - Active Staff] - Within 2 Weeks (For COPD exacerbation or pneumonia) Eligio Lyman MD [Primary Care Provider] - Disposition Disposition (needs filled in before D/C Order can be placed): Home, Self Care Charges/Coding Visit Charges Inpatient E&M: 10557 Disch Hosp >30min
--- NOTE | 2022-12-11 11:35 | NURSING ---
Patient does not want to wait for glucose lab backup at this time. Dr. Wright made aware and states patient is ok to [facility]. He needs to check his blood sugar at home in about 2 hrs. Patient was made aware. He does not want a wheelchair ride out. He reports he wants to walk. He states he will take his time.
[2022-12-11 11:42] LABS: Glucose 479 mg/dL (74-106)
== END 2022-12-11 11:38 | disposition home or self-care (01) | DRG 194 ==
LOC: ED 13:00 → MS3 13:52
PROVIDERS: Admitting Provider Internal Medicine; Emergency Provider Emergency Medicine; PCP Family Medicine; Visit Provider Internal Medicine
DX: J18.9 Pneumonia, unspecified organism (principal); J44.1 Chronic obstructive pulmonary disease with (acute) exacerbation; E87.1 Hypo-osmolality and hyponatremia; J44.0 Chronic obstructive pulmonary disease with (acute) lower respiratory infection; E11.65 Type 2 diabetes mellitus with hyperglycemia; I10 Essential (primary) hypertension; F32.A Depression, unspecified; F10.10 Alcohol abuse, uncomplicated; F17.210 Nicotine dependence, cigarettes, uncomplicated; E78.5 Hyperlipidemia, unspecified; E66.9 Obesity, unspecified; Y90.9 Presence of alcohol in blood, level not specified; Z68.37 Body mass index [BMI] 37.0-37.9, adult; Z79.82 Long term (current) use of aspirin; Z79.84 Long term (current) use of oral hypoglycemic drugs; Z79.899 Other long term (current) drug therapy
CPT/HCPCS: 36415; 71046; 80048; 80053; 82947; 82962; 83605; 83735; 83880; 84100; 84484; 85025; 87040; 87070; 87077; 87205; 87428; 87449; 87633; 93005; 94640; 94668; 97802; 99252; 99284; 99406; J7030; J7050; A4216; G0463; J0696